=== PATIENT | female | born 1985 | race Caucasian/White ===

== ENCOUNTER 2021-11-11 07:48 | Inpatient (IN) | payer OTHER, SELFPAY ==
--- NOTE | ~2021-11-11 | CT_ITS ---
EXAMINATION: CT ABDOMEN AND PELVIS WITH CONTRAST CLINICAL INFORMATION: Nausea, vomiting, diarrhea and abdominal pain COMPARISON: None TECHNIQUE: Multidetector volumetric images were obtained from the superior aspect of the liver through the pubic symphysis following administration 85 mL of Omnipaque 350 intravenous contrast. Sagittal and coronal reformatted images were obtained on the technologist's workstation. Oral contrast: No This CT examination was performed using dose optimization techniques as appropriate, variously including the following: *Automated exposure control *Adjustment of mA and/or kV according to patient size (this includes techniques or standardized protocols for targeted exams where dose is matched to indication/reason for exam; i.e. extremities or head) *Use of iterative reconstruction technique DLP: 80 mGy-cm FINDINGS: LUNG BASES: The visualized lung bases are unremarkable. LIVER, GALLBLADDER, AND BILIARY TREE: The liver is normal in size, shape, and attenuation. No focal hepatic lesion or biliary ductal dilatation is present. The gallbladder is unremarkable with no evidence of radiopaque gallstones, gallbladder wall thickening, or obvious pericholecystic inflammatory changes. PANCREAS: Unremarkable. SPLEEN: Unremarkable. ADRENAL GLANDS: Unremarkable. KIDNEYS AND URETERS: The kidneys are normal in size, shape, and attenuation. No hydronephrosis, hydroureter, or calculi seen. No perinephric stranding. BLADDER: Unremarkable. GASTROINTESTINAL TRACT: The right colon is filled with fluid. There are inflammatory changes present in the right lower quadrant. The distal ileum appears thickened, which is probably a secondary finding. There are some small locules of extraluminal air seen in the right lower quadrant (see wood images) The appendix can be seen to be air-filled with a thickened wall extending down towards the rectum where there is an inflammatory process (3:67) in the distal end is distended, inflamed and filled with fluid. An appendicolith is not seen. Given the inflammatory process, perforated appendicitis is suspected. Some fluid is present in the presacral space. There is fluid collections seen in the left pelvis measuring 4.6 x 3.8 cm is most likely a left ovarian cyst rather than an abscess related to the appendix. Some fluid is present around the uterus probably related to the above-mentioned inflammatory process. Some mildly prominent right pelvic sidewall lymph nodes present (3:69) ABDOMINAL WALL: No significant hernia is appreciated. LYMPH NODES: No gross retroperitoneal lymphadenopathy. Mildly prominent right iliac lymph nodes. VASCULAR: Unremarkable. PELVIC VISCERA: An anteverted uterus is present. Probable left ovarian cyst as described above. OSSEOUS STRUCTURES: Unremarkable. CT/CT abdomen pelvis w con IMPRESSION: Marked inflammatory process in the right lower quadrant with secondary changes and some small bowel with dilated appendix (although air-filled proximally) with extraluminal gas. Suspect ruptured appendicitis. A drainable abscess collection is not seen. Fleischner guidelines were followed. This critical result was discussed with Dr. Dimitris Husain at 12 noon on the day the exam and it was ascertained that the content and urgency of the report was understood at the time of direct communication.
--- NOTE | ~2021-11-11 | CT_ITS ---
EXAMINATION: CT abdomen pelvis w con CLINICAL INFORMATION: Reason for Exam f/u perforated appendicitis COMPARISON: Prior CT from November 11, 2021 TECHNIQUE: Multidetector volumetric imaging was performed from the superior aspect of the liver through the pubic symphysis 85 cc of Omnipaque 350 injected Sagittal and coronal reformatted images were obtained on the technologist's workstation. This CT examination was performed using dose optimization techniques as appropriate, variously including the following: *Automated exposure control *Adjustment of mA and/or kV according to patient size (this includes techniques or standardized protocols for targeted exams where dose is matched to indication/reason for exam; i.e. extremities or head) *Use of iterative reconstruction technique DLP: 726 mGy-cm FINDINGS: LOWER THORAX: Mild atelectasis at right lung base. HEPATOBILIARY: No focal hepatic lesions. No biliary ductal dilatation. GALLBLADDER: Gallbladder is distended. SPLEEN: Spleen is normal in size. PANCREAS: No focal mass or ductal dilatation. STOMACH AND GASTROINTESTINAL TRACT: Stomach is grossly unremarkable. Dilated fluid-filled bowel loops throughout the abdomen suggesting an ileus. Appendix could not be directly visualized might have been ruptured, there is a phlegmon in the pelvis, mesenteric fat stranding, inflammation and fluid likely sequela of the ruptured appendix. There is no localized contained walled off abscess at this time yet. There is no free air. Few mildly prominent mesenteric lymph nodes probably reactive. ADRENALS: No adrenal nodules. KIDNEYS/URETERS: No hydronephrosis, stones or solid mass lesions. URINARY BLADDER: Partially decompressed. PELVIC VISCERA: Uterus is unremarkable. Rectum and perirectal fat are clear. There is a probably left ovarian cyst 4 cm unchanged. PERITONEUM: Small amount of free fluid along the gutters and in the pelvis ascites. No significant free air. LYMPH NODES: No lymphadenopathy. VASCULAR:Abdominal aorta normal in size, no aneurysm found. BONES, ABDOMINAL WALL AND SOFT TISSUES: Age-appropriate changes of the spine and skeletal system, no destructive osteolytic or osteosclerotic bone lesion found CT/CT abdomen pelvis w con IMPRESSION: *Further progression, more inflammation and fat stranding in the mid abdomen and pelvis likely phlegmon possible peritonitis from recently ruptured appendix. At this time however there is no loculated walled off fluid collection abscess. Given the degree of inflammation would recommend Continued imaging surveillance, May consider follow-up CT in one week. *Dilated fluid-filled small bowel loops throughout the abdomen suggesting an ileus. *There is 4 cm cystic structure in the left side of the pelvis probably left ovarian cyst unchanged. *Few mildly prominent mesenteric lymph nodes likely reactive. *Mild atelectasis at lung bases. *Mild ascites.
[2021-11-11 07:52] VITALS: BP 125/81; PULSE 132; RESP 20; TEMP 36.1; O2SAT 97; BMI 31.0
--- NOTE | 2021-11-11 08:07 | ED.NAVMDI ---
HPI - Nausea/Vomiting/Diarrhea General Chief complaint: Nausea/Vomiting/Diarrhea Stated complaint: vomiting Time Seen by Provider: 11/11/21 08:06 Source: patient Mode of arrival: ambulatory Limitations: no limitations History of Present Illness HPI Narrative: 36-year-old female presents emergency room complaining of nausea vomiting diarrhea. States % had the same thing last week as well as her they both recovered but she still feels like she is still feeling worse he had copious diarrhea strange denies any bloody or black stool and she states she has vomited twice today but no diarrhea since yesterday. She denies any falls or injuries she denies any surgeries to her abdomen. States she never had this problem in the past. She states she does not smoke drink and does not take any medications. MD elicited complaint: nausea, vomiting, diarrhea and abdominal pain Related Data Previous Rx's Medication Instructions Recorded norethindrone (contraceptive) 0.35 0.35 mg PO DAILY #28 tab 07/21/ mg tablet Allergies Allergy/AdvReac Type Severity Reaction Status Date / Time adhesive AdvReac Itching Verified 11/11/21 07:57 Review of Systems Review of Systems: Review of systems: General: Patient denies any fever chills recent illness or falls Musculoskeletal: Denies back pain or body aches or other injuries HEENT: denies headache, runny nose, ear pain Respiratory: denies shortness of breath, cough Cardiovascular: no chest pain or palpitations : denies dysuria, frequency Abdomen: diarrhea nausea vomiting generalized abdominal pain Extremities: no swelling, no pain Skin: no diaphoresis Yes all other systems are reviewed and are negative PMFSH Past Medical History Medical History (Updated 11/11/21 @ 12:37 by Dimitris Husain DO) Eczema Surgical History (Updated 11/11/21 @ 13:36 by Hiwot Haider PA-C) History of section Social History Social History Advance Directives: No Advance Directives Information Provided: No Patient : No Physical Exam Vital Signs: Vital Signs: Last Vital Signs Temp 99.1 F 11/11/21 11:53 Pulse 80 11/11/21 11:53 Resp 18 11/11/21 11:53 BP 109/42 L 11/11/21 11:53 Pulse Ox 99 11/11/21 11:53 BMI result Body Mass Index 31.0 General: Well-appearing well-nourished in no signs of distress HEENT: Normocephalic atraumatic Neck: No signs of JVD, no masses no tenderness or lymphadenopathy Cardiovascular: Regular rate and rhythm Respiratory: Clear to auscultation bilaterally Abdomen: Soft tender all over no masses Extremities: Normal pedal pulses no signs of edema Skin: Dry warm no rashes Back: No tenderness full ROM MDM - Nausea/Vomiting/Diarrhea MDM Narrative Medical decision making narrative: Patient denies any travel any recent drinking her stream she has no recent antibiotic use mainly is complaining of vomiting I will give the patient fluids she is tachycardic so I will order 2 L (Zofran morphine since patient is tender on exam will give patient for CT scan. 1200 patient found to have perforated appendicitis I started the patient on Zosyn explained there is also the patient my consulted with our surgeon. 1235 Dr. Haider will come and see the patient. 1345 Dr. Haider saw the patient and will admit. Lab Data Result diagrams: 11/11/21 08:21 11/11/21 08:21 Labs: Lab Results 11/11/21 11/11/21 11/11/21 Range/Units 08:21 08:21 08:21 WBC 31.2 H* (4.8-10.8) X10*3/uL RBC 4.27 (4.20-5.50) X10*6/uL Hgb 12.8 (12.0-16.0) g/dl Hct 38.7 (37.0-47.0) % MCV 90.6 (80.0-98.0) fL MCH 30.0 (27.0-33.0) pg MCHC 33.1 (31.0-35.0) g/dl RDW 12.6 (11.0-16.0) % Plt Count 263 (160-400) X10*3/uL MPV 9.5 (9.4-12.3) fL Immature Gran % (Auto) 1.0 H (0.0-0.4) % Neut % (Auto) 90.5 H (45-73) % Lymph % (Auto) 3.3 L (20-40) % Mineral % (Auto) 4.9 (2-11) % Eos % (Auto) 0.0 (0-4) % Baso % (Auto) 0.3 (0-2) % Lymph # (Auto) 1.0 L (1.2-4.9) X10*3/uL Mineral # (Auto) 1.5 H (0.1-1.2) X10*3/uL Eos # (Auto) 0.0 (0.0-0.4) X10*3/uL Baso # (Auto) 0.1 (0.0-0.2) X10*3/uL Abs Immat Gran (auto) 0.31 H (0.00-0.03) X10*3/uL Absolute Neuts (auto) 28.2 H (2.0-8.3) x10*3/uL Absolute Nucleated RBC 0.000 (0.0-0.012) X10*3/uL Nucleated RBC % (auto) 0.0 (0.0-0.2) /100WBC Smear Tech's Comments VERIFIED Sodium 132 L (135-145) mmol/L Potassium 3.7 (3.3-5.1) mmol/L Chloride 100 (96-108) mmol/L Carbon Dioxide 18 L (22-29) mmol/L Anion Gap 18 (12-20) BUN 10 (9-16) mg/dL Creatinine 0.74 (0.5-1.4) mg/dL Estim Creat Clear Calc 123.3 Estimated GFR > 60 Random Glucose 143 H (60-115) mg/dL Calcium 9.1 (8.4-10.2) mg/dL Total Bilirubin 1.8 H (0.0-1.0) mg/dL Direct Bilirubin 0.7 H (0.0-0.5) mg/dL AST 20 (5-31) U/L ALT 9 (0-31) U/L Alkaline Phosphatase 66 (39-117) U/L Total Protein 7.6 (6.5-8.0) g/dL Albumin 3.9 (3.5-5.0) g/dL Lipase 5 L (8-78) U/L Urine Color Urine Appearance Urine pH (5.0-8.0) Ur Specific [place] (1.005-1.025) Urine Protein (NEG-TRACE) MG/DL Urine Glucose (UA) (NEG) MG/DL Urine Ketones (NEG) MG/DL Urine Blood (NEG) Urine Nitrite (NEG) Ur Leukocyte Esterase (NEG) Urine RBC (0) /HPF Urine WBC (0-4) /HPF Ur Squamous Epith Cells /LPF Amorphous Sediment /LPF Urine Bacteria /LPF Granular Casts /LPF Urine Test (NEGATIVE) COVID-19 (ANDRADE) Negative (Negative) COVID-19 Clin Com See Note 11/11/21 11/11/21 Range/Units 09:48 09:49 WBC (4.8-10.8) X10*3/uL RBC (4.20-5.50) X10*6/uL Hgb (12.0-16.0) g/dl Hct (37.0-47.0) % MCV (80.0-98.0) fL MCH (27.0-33.0) pg MCHC (31.0-35.0) g/dl RDW (11.0-16.0) % Plt Count (160-400) X10*3/uL MPV (9.4-12.3) fL Immature Gran % (Auto) (0.0-0.4) % Neut % (Auto) (45-73) % Lymph % (Auto) (20-40) % Mineral % (Auto) (2-11) % Eos % (Auto) (0-4) % Baso % (Auto) (0-2) % Lymph # (Auto) (1.2-4.9) X10*3/uL Mineral # (Auto) (0.1-1.2) X10*3/uL Eos # (Auto) (0.0-0.4) X10*3/uL Baso # (Auto) (0.0-0.2) X10*3/uL Abs Immat Gran (auto) (0.00-0.03) X10*3/uL Absolute Neuts (auto) (2.0-8.3) x10*3/uL Absolute Nucleated RBC (0.0-0.012) X10*3/uL Nucleated RBC % (auto) (0.0-0.2) /100WBC Smear Tech's Comments Sodium (135-145) mmol/L Potassium (3.3-5.1) mmol/L Chloride (96-108) mmol/L Carbon Dioxide (22-29) mmol/L Anion Gap (12-20) BUN (9-16) mg/dL Creatinine (0.5-1.4) mg/dL Estim Creat Clear Calc Estimated GFR Random Glucose (60-115) mg/dL Calcium (8.4-10.2) mg/dL Total Bilirubin (0.0-1.0) mg/dL Direct Bilirubin (0.0-0.5) mg/dL AST (5-31) U/L ALT (0-31) U/L Alkaline Phosphatase (39-117) U/L Total Protein (6.5-8.0) g/dL Albumin (3.5-5.0) g/dL Lipase (8-78) U/L Urine Color DK YELLOW Urine Appearance CLOUDY Urine pH 6.0 (5.0-8.0) Ur Specific [place] >= 1.030 H (1.005-1.025) Urine Protein 3+ H (NEG-TRACE) MG/DL Urine Glucose (UA) 100 H (NEG) MG/DL Urine Ketones 40 (NEG) MG/DL Urine Blood 2+ H (NEG) Urine Nitrite POS H (NEG) Ur Leukocyte Esterase NEG (NEG) Urine RBC 0-2 (0) /HPF Urine WBC 0-2 (0-4) /HPF Ur Squamous Epith Cells 1+ /LPF Amorphous Sediment 4+ /LPF Urine Bacteria 3+ /LPF Granular Casts 5-9 /LPF Urine Test NEGATIVE (NEGATIVE) COVID-19 (ANDRADE) (Negative) COVID-19 Clin Com Critical Care Time Critical Care Time Critical Care Time: Yes Total Critical Care Time: 46 Attestation: Patient with perforated appendicitis IV antibiotics initiated immediately consultation with surgery about admission and surgery patient reassured patient's pain was also told multiple times. Discharge Plan Discharge Clinical Impression: Perforated appendicitis Prescriptions: No Action norethindrone (contraceptive) 0.35 mg tablet 0.35 mg PO DAILY Qty: 28 2RF
[2021-11-11 08:29] LABS: Basophils Absolute Auto 0.1 X10*3/uL (0.0-0.2); Basophils Percent Auto 0.3 % (0-2); Hematocrit 38.7 % (37.0-47.0); Hemoglobin 12.8 g/dl (12.0-16.0); Imm Gran Abs Auto 0.31 X10*3/uL (0.00-0.03); Lymphocytes Percent Auto 3.3 % (20-40); MANUAL DIFF FLAG SCAN; Mean Corpuscular HGB Conc 33.1 g/dl (31.0-35.0); Mean Corpuscular Volume 90.6 fL (80.0-98.0); Mean Platelet Volume 9.5 fL (9.4-12.3); Monocytes Absolute Auto 1.5 X10*3/uL (0.1-1.2); Monocytes Percent Auto 4.9 % (2-11); Neutrophils Absolute Auto 28.2 x10*3/uL (2.0-8.3); Neutrophils Percent Auto 90.5 % (45-73); Platelet Count 263 X10*3/uL (160-400); Red Blood Count 4.27 X10*6/uL (4.20-5.50); Red Cell Distribution Width 12.6 % (11.0-16.0); SCAN SMEAR FLAG 1
[2021-11-11 08:47] LABS: White Blood Count 31.2 X10*3/uL (4.8-10.8)
[2021-11-11 08:49] LABS: COVID-19 Test Negative (Negative); IDNOW Serial# 16C4AD1C
[2021-11-11] MEDS: 0.9 % Sodium Chloride 1,000 ML 999 ML IV ×2 (08:49→10:01)
[2021-11-11 08:52] LABS: SLIDE REVIEW VERIFIED
[2021-11-11] MEDS: Morphine Sulfate 4 MG/ML CARTRIDGE IVPUSH ×4 (08:58→20:34)
[2021-11-11] MEDS: Famotidine/PF 20 MG/2 ML VIAL IVPUSH (08:58)
[2021-11-11] MEDS: Ketorolac Tromethamine 15 MG/ML VIAL IVPUSH (08:59)
[2021-11-11] MEDS: ondansetron HCL 4 MG/2 ML VIAL IVPUSH (08:59)
[2021-11-11 09:25] LABS: Alanine Aminotransferase 9 U/L (0-31); Albumin Level 3.9 g/dL (3.5-5.0); Alkaline Phosphatase 66 U/L (39-117); Anion Gap 18 (12-20); Aspartate Amino Transferase 20 U/L (5-31); Bilirubin Direct 0.7 mg/dL (0.0-0.5); Bilirubin Total 1.8 mg/dL (0.0-1.0); Blood Urea Nitrogen 10 mg/dL (9-16); Calcium 9.1 mg/dL (8.4-10.2); Carbon Dioxide 18 mmol/L (22-29); Chloride 100 mmol/L (96-108); Creatinine Clr Calc Pharmacy 123.3; Estimated Glomerular Filt Rate > 60; Glucose Random 143 mg/dL (60-115); Lipase 5 U/L (8-78); Potassium 3.7 mmol/L (3.3-5.1); Sodium 132 mmol/L (135-145); Total Protein 7.6 g/dL (6.5-8.0)
[2021-11-11 09:44] VITALS: BP 116/63; PULSE 80; RESP 16; O2SAT 97
[2021-11-11 09:58] LABS: UPreg QC Valid YES; Urine Pregnancy NEGATIVE (NEGATIVE)
[2021-11-11 10:03] LABS: Appearance Urine CLOUDY; Color Urine DK YELLOW; Glucose Urine UA 100 MG/DL (NEG); Leukocyte Esterase Urine NEG (NEG); Nitrite Urine POS (NEG); Specific Gravity - Urine >= 1.030 (1.005-1.025); UACC Culture Trigger YES; Urine Blood 2+ (NEG); Urine Ketones 40 MG/DL (NEG); Urine Protein 3+ MG/DL (NEG-TRACE)
[2021-11-11] MEDS: iohexoL 350 MG/ML 100 ML INFUS..BTL IV (10:17)
[2021-11-11 10:18] LABS: Amorphous Sediment Urine 4+ /LPF; Squamous Epithelial Cell Urine 1+ /LPF
[2021-11-11 10:19] LABS: Bacteria Urine 3+ /LPF
[2021-11-11 10:20] LABS: RBC Urine 0-2 /HPF (0); WBC Urine 0-2 /HPF (0-4)
[2021-11-11 11:53] VITALS: BP 109/42; PULSE 80; RESP 18; TEMP 37.3; O2SAT 99
[2021-11-11] MEDS: Magnesium Hydrox/Alum Hydrox 30 ML ORAL.SUSP PO (12:03)
[2021-11-11] MEDS: Piperacillin Sodium/Tazobactam 4.5 GM in 0.9 % Sodium Chloride 100 ML IV (12:19)
--- NOTE | 2021-11-11 13:07 | P.HPGS_ITS ---
History of Present Illness History of Present Illness Date of Service: 11/11/21 <Hiwot Haider PA-C - Last Filed: 11/11/21 13:54> 11/11/21 <Jo Haider MD - Last Filed: 11/11/21 17:32> Chief complaint: Perforated Appendicitis <Hiwot Haider PA-C - Last Filed: 11/11/21 13:54> Narrative: Natali Hernandez is a healthy 36 year old female who presented to the ED with c/o abdominal pain. She reports she was in her normal state of health until the pain started Monday and was initially periumbilical but migrated to the RLQ where it persisted. The pain is associated with subjective fevers, nausea/vomiting and diarrhea. Her and son had similar symptoms which is why she thought she had a stomach bug. However the pain worsened last night and became so severe she was unable to sleep. This prompted her to seek care in the ED. A CBC was obtained in the ED which showed a leukocytosis of 31. A CT scan was therefore obtained which showed inflammatory changes present in the right lower quadrant with a thickened appendix extending down towards the rectum where there is an inflammatory process. There are some small locules of extraluminal air seen in the right lower quadrant. Surgery consult was therefore requested. <Hiwot Haider PA-C - Last Filed: 11/11/21 13:54> Review of Systems Constitutional: Constitutional: Reports as per HPI, Denies chills, Denies night sweats and Denies weight loss <Hiwot Haider PA-C - Last Filed: 11/11/21 13:54> ENT: Denies dizziness <Hiwot Haider PA-C - Last Filed: 11/11/21 13:54> Cardiovascular: Cardiovascular: Denies palpitations and Denies dyspnea <ALEXANDRIA Keita Last Filed: 11/11/21 13:54> Respiratory: Respiratory: Denies cough and Denies dyspnea <ALEXANDRIA Keita Last Filed: 11/11/21 13:54> Gastrointestinal: Gastrointestinal: Reports as per HPI, Denies melena, Denies hematochezia, Denies coffee ground emesis and Denies hematemesis <Hiwot Haider PA-C - Last Filed: 11/11/21 13:54> Genitourinary: Genitourinary: Denies hematuria and Reports dysuria <Hiwot Haider PA-C - Last Filed: 11/11/21 13:54> Musculoskeletal: Musculoskeletal: Denies numbness <TREY Keita - Last Filed: 11/11/21 13:54> Integumentary/Breasts: Skin/Breast: Denies rash and Denies jaundice <Hiwot Haider PA-C - Last Filed: 11/11/21 13:54> Neurologic: Denies dizziness, Denies focal weakness and Denies numbness <Hiwot Haider PA-C - Last Filed: 11/11/21 13:54> Endocrine: Endocrine: Denies palpitations <Hiwot Haider PA-C - Last Filed: 11/11/21 13:54> PMFSH Past Medical History Medical History: Medical History (Updated 11/11/21 @ 12:37 by Dimitris Husain DO) Eczema <Hiwot Haider PA-C - Last Filed: 11/11/21 13:54> Surgical History Surgical History: Surgical History (Updated 11/11/21 @ 13:36 by Hiwot Haider PA-C) History of section <ALEXANDRIA Keita Last Filed: 11/11/21 13:54> Social History Social History: Social History Advance Directives: No Advance Directives Information Provided: No Patient : No <Hiwot Haider PA-C - Last Filed: 11/11/21 13:54> Meds Allergies/Adverse reactions: Allergies Allergy/AdvReac Type Severity Reaction Status Date / Time adhesive AdvReac Itching Verified 11/11/21 07:57 <Hiwot Haider PA-C Last Filed: 11/11/21 13:54> Home medications: Home Medications Medication Instructions Recorded Confirmed Last Taken Type triamcinolone acetonide 0.1 % 1 appl TOPICAL DAILY PRN 11/11/21 11/11/21 Unknown History topical cream <Hiwot Haider PA-C - Last Filed: 11/11/21 13:54> Physical Exam Vital Signs: Vital Signs: Last Vital Signs Temp 99.1 F 11/11/21 11:53 Pulse 80 11/11/21 11:53 Resp 18 11/11/21 11:53 BP 109/42 L 11/11/21 11:53 Pulse Ox 99 11/11/21 11:53 BMI result Body Mass Index 31.0 <[facility] Last Filed: 11/11/21 13:54> Const: General: no acute distress, well developed, alert and anxious <[facility] Last Filed: 11/11/21 13:54> Orientation/consciousness: patient oriented x3 <[facility] Last Filed: 11/11/21 13:54> Eyes: Sclerae: sclerae normal <[facility] Last Filed: 11/11/21 13:54> Resp: Effort & Inspection: normal respiratory effort <[facility] Last Filed: 11/11/21 13:54> Cardio: Rate: regular rate <[facility] Last Filed: 11/11/21 13:54> GI: Inspection: No distended and Yes scar (pfannensteil) <TREY Keita Last Filed: 11/11/21 13:54> Palpation (GI): Soft to palpation, Tenderness to palpation present (GI) (mild tenderness diffusely, marked RLQ tenderness) at McBurney's point; Negative for Rovsing's sign negative, no guarding and not rigid <[facility] Last Filed: 11/11/21 13:54> Percussion: Yes normal to percussion <TREY Keita [employer] Last Filed: 11/11/21 13:54> Skin: General skin exam: no rashes or lesions noted <[facility] Last Filed: 11/11/21 13:54> Neuro: General: patient oriented x3 and moves all extremities <[facility] Last Filed: 11/11/21 13:54> Extrem: General: Yes no clubbing, cyanosis or edema <Hiwot Haider PA-C - Last Filed: 11/11/21 13:54> Results Results Labs: Short CBC 11/11/21 Range/Units 08:21 WBC 31.2 H* (4.8-10.8) X10*3/uL Hgb 12.8 (12.0-16.0) g/dl Hct 38.7 (37.0-47.0) % Plt Count 263 (160-400) X10*3/uL BMP 11/11/21 08:21 Sodium 132 L Potassium 3.7 Chloride 100 Carbon Dioxide 18 L BUN 10 Creatinine 0.74 Calcium 9.1 Liver Function 11/11/21 Range/Units 08:21 Total Bilirubin 1.8 H (0.0-1.0) mg/dL Direct Bilirubin 0.7 H (0.0-0.5) mg/dL AST 20 (5-31) U/L ALT 9 (0-31) U/L Alkaline Phosphatase 66 (39-117) U/L Albumin 3.9 (3.5-5.0) g/dL Urine 11/11/21 11/11/21 Range/Units 09:48 09:49 Urine Color DK YELLOW Urine Appearance CLOUDY Urine pH 6.0 (5.0-8.0) Ur Specific [place] >= 1.030 H (1.005-1.025) Urine Protein 3+ H (NEG-TRACE) MG/DL Urine Glucose (UA) 100 H (NEG) MG/DL Urine Test NEGATIVE (NEGATIVE) <Hiwot Haider PA-C - Last Filed: 11/11/21 13:54> Abdomen CT scan report/results: report reviewed and image reviewed <Hiwot Haider PA-C - Last Filed: 11/11/21 13:54> Additional studies: CT SCAN abd/pelvis: The right colon is filled with fluid. There are inflammatory changes present in the right lower quadrant. The distal ileum appears thickened, which is probably a secondary finding. There are some small locules of extraluminal air seen in the right lower quadrant (see wood images) The appendix can be seen to be air-filled with a thickened wall extending down towards the rectum where there is an inflammatory process (3:67) in the distal end is distended, inflamed and filled with fluid. An appendicolith is not seen. Given the inflammatory process, perforated appendicitis is suspected. Some fluid is present in the presacral space. There is fluid collections seen in the left pelvis measuring 4.6 x 3.8 cm is most likely a left ovarian cyst rather than an abscess related to the appendix. Some fluid is present around the uterus probably related to the above-mentioned inflammatory process. Some mildly prominent right pelvic sidewall lymph nodes present (3:69) <Hiwot Haider PA-C - Last Filed: 11/11/21 13:54> Assessment and Plan (1) Perforated appendicitis: Status: Acute <Hiwot Haider PA-C - Last Filed: 11/11/21 13:54> Plan 36 year old healthy female who developed acute onset of periumbilical abd pain that migrated to RLQ associated with vomiting and diarrhea, with marked RLQ tenderness, leukocytosis of CT scan demonstrating thickened appendix with significant surrounding inflammatory changes and small foci of extraluminal air in the RLQ. Overall clinical picture consistent with acute appendicitis, perforated. She does have marked RLQ tenderness however without any peritoneal signs. Her vitals are stable and she is currently non toxic appearing but very anxious. Given the significant surrounding inflammatory changes present on CT scan, it was suggested to continue with nonoperative treatment with IV antibiotics and close monitoring with serial abd exams. It was discussed that if we did proceed with appendectomy, there is a probability she would require an ileocolectomy given the present changes seen. However it was also discussed that if she does not improve with supportive measures, she may requiring surgery during this admission. She understands. There is no current drainable abscess noted as well. She was started on IV zosyn, kept NPO, IVF, PRN analgesics and antiemetics. Will repeat labs in am. Further plan dependent on clinical course. Possible repeat CT scan in a couple days or sooner to evaluate for developing abscess. Lactic acid ordered and is pending. Discussed with patient and spouse. All questions answered. Case discussed with Dr. Haider. <Hiwot Haider PA-C - Last Filed: 11/11/21 13:54> 36 year old healthy female who developed acute onset of periumbilical abd pain that migrated to RLQ associated with vomiting and diarrhea, with marked RLQ tenderness, leukocytosis of CT scan demonstrating thickened appendix with significant surrounding inflammatory changes and small foci of extraluminal air in the RLQ. Overall clinical picture consistent with acute appendicitis, perforated. She does have marked RLQ tenderness however without any peritoneal signs. Her vitals are stable and she is currently non toxic appearing but very anxious. Given the significant surrounding inflammatory changes present on CT scan, it was suggested to continue with nonoperative treatment with IV antibiotics and close monitoring with serial abd exams. It was discussed that if we did proceed with appendectomy, there is a probability she would require an ileocolectomy given the present changes seen. However it was also discussed that if she does not improve with supportive measures, she may requiring surgery during this admission. She understands. There is no current drainable abscess noted as well. She was started on IV zosyn, kept NPO, IVF, PRN analgesics and antiemetics. Will repeat labs in am. Further plan dependent on clinical course. Possible repeat CT scan in a couple days or sooner to evaluate for developing abscess. Lactic acid ordered and is pending. Discussed with patient and spouse. All questions answered. Case discussed with Dr. Haider. agree with the above. pt seen and examined and xrays reviewed with rad team. agree most likely with ruptured appendicits but lots of inflammatory changes around the cecum and appnedix and higher chance of needing an ileocecal procedure. pt stable and localized pain so will trial npo, ivf, iv zosyn and fu serial abdo exams and labs in am. pt uderstands and agrees risks and benefits of options and will stay with plan for conservative care for now. <Jo Haider MD - Last Filed: 11/11/21 17:32> Quality Stroke Does the patient have a stroke diagnosis?: No <Hiwot Haider PA-C - Last Filed: 11/11/21 13:54> VTE Prior VTE?: No <Hiwot Haider PA-C - Last Filed: 11/11/21 13:54> VTE Risk Level:: Surgical - moderate <ALEXANDRIA Keita Last Filed: 11/11/21 13:54> VTE Device Contraindication: N/A - Device Ordered <ALEXANDRIA Keita Last Filed: 11/11/21 13:54> VTE Drug Contraindication: Treatment Not Indicated <Hiwot Haider PA-C - Last Filed: 11/11/21 13:54> Procedures Date of Service Date of Service: 11/11/21 <Hiwot Haider PA-C - Last Filed: 11/11/21 13:54>
[2021-11-11 13:55] VITALS: BP 110/42; PULSE 100; RESP 12; O2SAT 99
--- NOTE | 2021-11-11 14:26 | PHA.MEDREC ---
Pharmacy Consult ? Medication Reconciliation Pharmacy has completed the medication reconciliation. Pt only uses eczema cream as needed. Luz Marina Valle, HollyD
[2021-11-11] MEDS: Lactated Ringers 1,000 ML 125 ML IVCONT (16:39)
[2021-11-11] MEDS: Ketorolac Tromethamine 30 MG/ML VIAL IVPUSH (17:47)
[2021-11-11] MEDS: Piperacillin Sodium/Tazobactam 3.375 GM in 0.9 % Sodium Chloride 50 ML IV ×2 (17:48→23:29)
--- NOTE | 2021-11-11 18:20 | MHC.CM.PN ---
No HCP-declines. Pfizerx2, Moderna Boosterx1. Lives with . 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 No DME/services. PCP [facility]. D/C plan: Home without services. Family to transport.
[2021-11-11 20:15] VITALS: BP 109/55; PULSE 90; RESP 18; TEMP 37.1; O2SAT 96
[2021-11-11] MEDS: Lactated Ringers 1,000 ML 150 ML IVCONT (20:34)
[2021-11-11] MEDS: 0.9 % Sodium Chloride Flush 3 ML SYRINGE IVFLUSH (20:35)
[2021-11-11 20:40] VITALS: BMI 21.4
[2021-11-12] VITALS (8 sets, daily range): BP systolic 100–138; BP diastolic 53–65; PULSE 72–105; RESP 17–18; TEMP 36.2–37.7; O2SAT 95–98
[2021-11-12] MEDS: Lactated Ringers 1,000 ML 150 ML IVCONT ×4 (02:11→23:26)
[2021-11-12] MEDS: Morphine Sulfate 4 MG/ML CARTRIDGE IVPUSH ×2 (04:30→15:51)
[2021-11-12 06:07] LABS: Hematocrit 32.1 % (37.0-47.0); Hemoglobin 10.5 g/dl (12.0-16.0); Mean Corpuscular HGB Conc 32.7 g/dl (31.0-35.0); Mean Corpuscular Volume 91.7 fL (80.0-98.0); Mean Platelet Volume 10.4 fL (9.4-12.3); Platelet Count 217 X10*3/uL (160-400); Red Cell Distribution Width 12.9 % (11.0-16.0); White Blood Count 23.3 X10*3/uL (4.8-10.8)
[2021-11-12] MEDS: Piperacillin Sodium/Tazobactam 3.375 GM in 0.9 % Sodium Chloride 50 ML IV ×3 (06:09→18:14)
[2021-11-12 06:39] LABS: Anion Gap 14 (12-20); Blood Urea Nitrogen 17 mg/dL (9-16); Calcium 8.1 mg/dL (8.4-10.2); Carbon Dioxide 20 mmol/L (22-29); Chloride 104 mmol/L (96-108); Estimated Glomerular Filt Rate > 60; Glucose Random 72 mg/dL (60-115); Potassium 3.4 mmol/L (3.3-5.1); Sodium 135 mmol/L (135-145)
[2021-11-12 06:44] LABS: Band Neutrophils Percent 11 % (3-5); Basophils Abs Manual 0.2 X10*3/uL (0.0-0.2); Basophils Percent Manual 1 % (0-2); Eosinophils Absolute Manual 0.5 X10*3/uL (0.0-0.4); Eosinophils Percent Manual 2 % (0-4); Lymphocytes Absolute Manual 0.7 X10*3/uL (1.2-4.9); Lymphocytes Percent Manual 3 % (20-40); Monocytes Absolute Manual 0.9 X10*3/uL (0.1-1.2); Monocytes Percent Manual 4 % (2-11); Neutrophils Percent Manual 79 % (45-73)
[2021-11-12 06:45] LABS: Platelet Estimate NORMAL (NORMAL); Platelet Morphology Comment NORMAL; RBC Morphology NORMAL; Toxic Granulation PRESENT; Toxic Vacuolation PRESENT
--- NOTE | 2021-11-12 07:28 | P.HPHOSP_ITS ---
History of Present Illness Date of Service: 11/12/21 Attending physician on admission: Amado Reinoso [facility] Medical History (Updated 11/11/21 @ 12:37 by Dimitris Husain DO) Eczema Surgical History (Updated 11/11/21 @ 13:36 by Hiwot Haider PA-C) History of section Social History Household Members: Spouse and Family Housing: House Do you presently have visiting nurse or other home services: No Patient Tobacco Use Status: Never used Tobacco Use of substances other than those prescribed or required for medical reasons: No Currently Displaying Signs/Symptoms of Drug Intoxication Withdrawal: No Have you been hit, kicked, punched, or otherwise hurt by someone within the past year? If so, by whom?: No Do you feel safe in your current relationship?: No Is there a partner from a previous relationship who is making you feel unsafe now?: No Are you made to feel afraid or neglected: No Advance Directives: No Advance Directives Information Provided: No Advance Directives on File: No Do you have thoughts of harming others: None Do you have a plan to hurt others: No Plan Recently lost weight without trying: No How much weight loss: Not applicable Eating poorly because of decreased appetite: No Nutrition screen score: 0 Nutrition Risks: No Nutritional Risk Patient : No : No Poor oral hygiene: No service: No Current occupational status: employed Meds Allergies Allergy/AdvReac Type Severity Reaction Status Date / Time adhesive AdvReac Itching Verified 11/11/21 07:57 Active Medications: Current Medications Lactated Ringer's (Lr) 1,000 mls @ 150 mls/hr IVCONT .Q6H40M [facility] Last Admin: 11/12/21 02:11 Dose: 150 mls/hr Documented by: Piperacillin Sod/Tazobactam (Sod 3.375 gm/ Sodium Chloride) 50 mls @ 100 mls/hr IV Q6H [facility] Last Infusion: 11/12/21 06:48 Dose: Infused Documented by: Acetaminophen (Ofirmev) 1,000 mg in 100 mls @ 400 mls/hr IV Q6H [facility] Last Infusion: 11/12/21 02:11 Dose: Infused Documented by: Ketorolac Tromethamine (Ketorolac Tromethamine 30 Mg/Ml Vial) 30 mg IVPUSH Q6H PRN PRN Reason: Pain, Moderate (Pain Scale 4-6 Last Admin: 11/11/21 17:47 Dose: 30 mg Documented by: Morphine Sulfate (Morphine Sulfate 4 Mg/Ml Cartridge) 4 mg IVPUSH Q4H PRN; Protocol PRN Reason: Pain, Severe (Pain Scale 7-10) Last Admin: 11/12/21 04:30 Dose: 4 mg Documented by: Ondansetron HCl (Ondansetron Hcl 4 Mg/2 Ml Vial) 4 mg IVPUSH Q8H PRN PRN Reason: Nausea and Vomiting Oxycodone HCl (Oxycodone Hcl Immed Release 5 Mg Tablet) 5 mg PO Q6H PRN PRN Reason: Pain, Moderate (Pain Scale 4-6 Pharmacy Consult (Consult Rx Perform Med Rec) 1 each MISCELLANE ONCE PRN PRN Reason: Consult order Sodium Chloride (0.9 % Sodium Chloride Flush 3 Ml Syringe) 3 ml IVFLUSH [facility] Last Admin: 11/11/21 20:35 Dose: 3 ml Documented by: Home Medications Medication Instructions Recorded Confirmed Last Taken Type triamcinolone acetonide 0.1 % 1 appl TOPICAL DAILY PRN 11/11/21 11/11/21 Unknown History topical cream Physical Exam Vital Signs and Narrative: Vital Signs: Last Vital Signs Temp 98.2 F 11/12/21 04:00 Pulse 79 11/12/21 04:00 Resp 18 11/12/21 04:00 BP 100/53 L 11/12/21 04:00 Pulse Ox 96 11/12/21 04:00 BMI result Body Mass Index 21.4 Results Labs CBC and Chem 7: 11/12/21 05:21 11/12/21 05:21 Labs: Laboratory Results - last 24 hr 11/11/21 11/11/21 11/11/21 08:21 08:21 08:21 MCV 90.6 MCH 30.0 MCHC 33.1 RDW 12.6 Plt Count 263 MPV 9.5 Immature Gran % (Auto) 1.0 H Neut % (Auto) 90.5 H Lymph % (Auto) 3.3 L [place] % (Auto) 4.9 Eos % (Auto) 0.0 Baso % (Auto) 0.3 Lymph # (Auto) 1.0 L [place] # (Auto) 1.5 H Eos # (Auto) 0.0 Baso # (Auto) 0.1 Abs Immat Gran (auto) 0.31 H Absolute Neuts (auto) 28.2 H Absolute Nucleated RBC 0.000 Nucleated RBC % (auto) 0.0 Neutrophils % (Manual) Band Neutrophils % Lymphocytes % (Manual) Monocytes % (Manual) Eosinophils % (Manual) Basophils % (Manual) Abs Neuts (Manual) Lymphocytes # (Manual) Monocytes # (Manual) Eosinophils # (Manual) Basophils # (Manual) Toxic Granulation Toxic Vacuolation Platelet Estimate Plt Morphology Comment RBC Morphology Smear Tech's Comments VERIFIED Anion Gap 18 Estim Creat Clear Calc 123.3 Estimated GFR > 60 Random Glucose 143 H Lactic Acid Calcium 9.1 Total Bilirubin 1.8 H Direct Bilirubin 0.7 H AST 20 ALT 9 Alkaline Phosphatase 66 Total Protein 7.6 Albumin 3.9 Lipase 5 L Urine Color Urine Appearance Urine pH Ur Specific [place] Urine Protein Urine Glucose (UA) Urine Ketones Urine Blood Urine Nitrite Ur Leukocyte Esterase Urine RBC Urine WBC Ur Squamous Epith Cells Amorphous Sediment Urine Bacteria Granular Casts Urine Test COVID-19 (ANDRADE) Negative COVID-19 Clin Com See Note 11/11/21 11/11/21 11/11/21 09:48 09:49 15:56 MCV MCH MCHC RDW Plt Count MPV Immature Gran % (Auto) Neut % (Auto) Lymph % (Auto) [place] % (Auto) Eos % (Auto) Baso % (Auto) Lymph # (Auto) [place] # (Auto) Eos # (Auto) Baso # (Auto) Abs Immat Gran (auto) Absolute Neuts (auto) Absolute Nucleated RBC Nucleated RBC % (auto) Neutrophils % (Manual) Band Neutrophils % Lymphocytes % (Manual) Monocytes % (Manual) Eosinophils % (Manual) Basophils % (Manual) Abs Neuts (Manual) Lymphocytes # (Manual) Monocytes # (Manual) Eosinophils # (Manual) Basophils # (Manual) Toxic Granulation Toxic Vacuolation Platelet Estimate Plt Morphology Comment RBC Morphology Smear Tech's Comments Anion Gap Estim Creat Clear Calc Estimated GFR Random Glucose Lactic Acid Cancelled Calcium Total Bilirubin Direct Bilirubin AST ALT Alkaline Phosphatase Total Protein Albumin Lipase Urine Color DK YELLOW Urine Appearance CLOUDY Urine pH 6.0 Ur Specific [place] >= 1.030 H Urine Protein 3+ H Urine Glucose (UA) 100 H Urine Ketones 40 Urine Blood 2+ H Urine Nitrite POS H Ur Leukocyte Esterase NEG Urine RBC 0-2 Urine WBC 0-2 Ur Squamous Epith Cells 1+ Amorphous Sediment 4+ Urine Bacteria 3+ Granular Casts 5-9 Urine Test NEGATIVE COVID-19 (ANDRADE) COVID-19 [employer] Com 11/12/21 11/12/21 05:21 05:21 MCV 91.7 MCH 30.0 MCHC 32.7 RDW 12.9 Plt Count 217 MPV 10.4 Immature Gran % (Auto) Cancelled Neut % (Auto) Cancelled Lymph % (Auto) Cancelled [place] % (Auto) Cancelled Eos % (Auto) Cancelled Baso % (Auto) Cancelled Lymph # (Auto) Cancelled [place] # (Auto) Cancelled Eos # (Auto) Cancelled Baso # (Auto) Cancelled Abs Immat Gran (auto) Cancelled Absolute Neuts (auto) Cancelled Absolute Nucleated RBC 0.000 Nucleated RBC % (auto) 0.0 Neutrophils % (Manual) 79 H Band Neutrophils % 11 H Lymphocytes % (Manual) 3 L Monocytes % (Manual) 4 Eosinophils % (Manual) 2 Basophils % (Manual) 1 Abs Neuts (Manual) 21.0 H Lymphocytes # (Manual) 0.7 L Monocytes # (Manual) 0.9 Eosinophils # (Manual) 0.5 H Basophils # (Manual) 0.2 Toxic Granulation PRESENT Toxic Vacuolation PRESENT Platelet Estimate NORMAL Plt Morphology Comment NORMAL RBC Morphology NORMAL Smear Tech's Comments Anion Gap 14 Estim Creat Clear Calc 100.0 Estimated GFR > 60 Random Glucose 72 Lactic Acid Calcium 8.1 L D Total Bilirubin Direct Bilirubin AST ALT Alkaline Phosphatase Total Protein Albumin Lipase Urine Color Urine Appearance Urine pH Ur Specific [place] Urine Protein Urine Glucose (UA) Urine Ketones Urine Blood Urine Nitrite Ur Leukocyte Esterase Urine RBC Urine WBC Ur Squamous Epith Cells Amorphous Sediment Urine Bacteria Granular Casts Urine Test COVID-19 (ANDRADE) COVID-19 Clin Com Imaging Radiologist's Impressions: Impressions Abdomen/Pelvis CT 11/11/21 10:18 IMPRESSION: Marked inflammatory process in the right lower quadrant with secondary changes and some small bowel with dilated appendix (although air-filled proximally) with extraluminal gas. Suspect ruptured appendicitis. A drainable abscess collection is not seen. Fleischner guidelines were followed. This critical result was discussed with Dr. Dimitris Husain at 12 noon on the day the exam and it was ascertained that the content and urgency of the report was understood at the time of direct communication. Quality Stroke Does the patient have a stroke diagnosis?: No VTE Prior VTE?: No VTE Risk Level:: Surgical - moderate VTE Device Contraindication: N/A - Device Ordered VTE Drug Contraindication: Treatment Not Indicated
[2021-11-12] MEDS: 0.9 % Sodium Chloride Flush 3 ML SYRINGE IVFLUSH ×3 (07:44→23:26)
--- NOTE | 2021-11-12 08:06 | P.PNGS_ITS ---
Subjective Subjective Date of Service: 11/12/21 <Hiwot Haider PA-C - Last Filed: 11/12/21 08:14> 11/12/21 <Jere Odom MD - Last Filed: 11/12/21 15:00> Interval history: RLQ pain is much better this morning but also now having menstrual cramping. Denies further nausea and wants to eat. <Hiwot Haider PA-C - Last Filed: 11/12/21 08:14> Physical Exam Vital Signs: Vital Signs: Last Vital Signs Temp 98.7 F 11/12/21 07:29 Pulse 96 11/12/21 07:29 Resp 17 11/12/21 07:29 BP 123/57 L 11/12/21 07:29 Pulse Ox 98 11/12/21 07:29 BMI result Body Mass Index 21.4 <Hiwot Haider PA-C - Last Filed: 11/12/21 08:14> Const: General: comfortable, no acute distress and alert <Hiwot Haider PA-C - Last Filed: 11/12/21 08:14> Orientation/consciousness: patient oriented x3 <Hiwot Haider PA-C - Last Filed: 11/12/21 08:14> Resp: Effort & Inspection: normal respiratory effort <ALEXANDRIA Keita Last Filed: 11/12/21 08:14> Cardio: Rate: regular rate <Hiwot Haider PA-C - Last Filed: 11/12/21 08:14> GI: Inspection: No distended <Hiwot Haider PA-C - Last Filed: 11/12/21 08:14> Palpation (GI): Soft to palpation, Tenderness to palpation present (GI) in the RLQ, at McBurney's point and suprapubicly; Negative for with no rebound tenderness and Rovsing's sign negative, no guarding and not rigid <ALEXANDRIA Keita Last Filed: 11/12/21 08:14> Percussion: Yes normal to percussion <AL[place]RIA Keita Last Filed: 11/12/21 08:14> Skin: General skin exam: no rashes or lesions noted <Hiwot Haider PA-C - Last Filed: 11/12/21 08:14> Neuro: General: patient oriented x3 <Hiwot Haider PA-C - Last Filed: 11/12/21 08:14> Extrem: General: Yes no clubbing, cyanosis or edema <Hiwot Haider PA-C - Last Filed: 11/12/21 08:14> Objective Data Active Medications Lactated Ringer's (Lr) 1,000 mls @ 150 mls/hr IVCONT .Q6H40M [facility] Last Admin: 11/12/21 02:11 Dose: 150 mls/hr Documented by: ALIYA Piperacillin Sod/Tazobactam (Sod 3.375 gm/ Sodium Chloride) 50 mls @ 100 mls/hr IV Q6H [facility] Last Infusion: 11/12/21 06:48 Dose: 0 mls/hr Documented by: ALIYA Acetaminophen (Ofirmev) 1,000 mg in 100 mls @ 400 mls/hr IV Q6H [facility] Last Admin: 11/12/21 07:35 Dose: 400 mls/hr Documented by: CONNOR Ketorolac Tromethamine (Ketorolac Tromethamine 30 Mg/Ml Vial) 30 mg IVPUSH Q6H PRN PRN Reason: Pain, Moderate (Pain Scale 4-6 Last Admin: 11/11/21 17:47 Dose: 30 mg Documented by: [place] Morphine Sulfate (Morphine Sulfate 4 Mg/Ml Cartridge) 4 mg IVPUSH Q4H PRN; Protocol PRN Reason: Pain, Severe (Pain Scale 7-10) Last Admin: 11/12/21 04:30 Dose: 4 mg Documented by: ALIYA Ondansetron HCl (Ondansetron Hcl 4 Mg/2 Ml Vial) 4 mg IVPUSH Q8H PRN PRN Reason: Nausea and Vomiting Oxycodone HCl (Oxycodone Hcl Immed Release 5 Mg Tablet) 5 mg PO Q6H PRN PRN Reason: Pain, Moderate (Pain Scale 4-6 Pharmacy Consult (Consult Rx Perform Med Rec) 1 each MISCELLANE ONCE PRN PRN Reason: Consult order Sodium Chloride (0.9 % Sodium Chloride Flush 3 Ml Syringe) 3 ml IVFLUSH QSHIFT [facility] Last Admin: 11/12/21 07:44 Dose: 3 ml Documented by: CONNOR <Hiwot Haider PA-C - Last Filed: 11/12/21 08:14> Labs CBC & Chem 7: : 11/12/21 05:21 11/12/21 05:21 <Hiwot Haider PA-C - Last Filed: 11/12/21 08:14> Labs: Laboratory Results - last 24 hr 11/11/21 11/11/21 11/11/21 08:21 08:21 08:21 MCV 90.6 MCH 30.0 MCHC 33.1 RDW 12.6 Plt Count 263 MPV 9.5 Immature Gran % (Auto) 1.0 H Neut % (Auto) 90.5 H Lymph % (Auto) 3.3 L [place] % (Auto) 4.9 Eos % (Auto) 0.0 Baso % (Auto) 0.3 Lymph # (Auto) 1.0 L [place] # (Auto) 1.5 H Eos # (Auto) 0.0 Baso # (Auto) 0.1 Abs Immat Gran (auto) 0.31 H Absolute Neuts (auto) 28.2 H Absolute Nucleated RBC 0.000 Nucleated RBC % (auto) 0.0 Neutrophils % (Manual) Band Neutrophils % Lymphocytes % (Manual) Monocytes % (Manual) Eosinophils % (Manual) Basophils % (Manual) Abs Neuts (Manual) Lymphocytes # (Manual) Monocytes # (Manual) Eosinophils # (Manual) Basophils # (Manual) Toxic Granulation Toxic Vacuolation Platelet Estimate Plt Morphology Comment RBC Morphology Smear Tech's Comments VERIFIED Anion Gap 18 Estim Creat Clear Calc 123.3 Estimated GFR > 60 Random Glucose 143 H Lactic Acid Calcium 9.1 Total Bilirubin 1.8 H Direct Bilirubin 0.7 H AST 20 ALT 9 Alkaline Phosphatase 66 Total Protein 7.6 Albumin 3.9 Lipase 5 L Urine Color Urine Appearance Urine pH Ur Specific [place] Urine Protein Urine Glucose (UA) Urine Ketones Urine Blood Urine Nitrite Ur Leukocyte Esterase Urine RBC Urine WBC Ur Squamous Epith Cells Amorphous Sediment Urine Bacteria Granular Casts Urine Test COVID-19 (ANDRADE) Negative COVID-19 Clin Com See Note 11/11/21 11/11/21 11/11/21 09:48 09:49 15:56 MCV MCH MCHC RDW Plt Count MPV Immature Gran % (Auto) Neut % (Auto) Lymph % (Auto) [place] % (Auto) Eos % (Auto) Baso % (Auto) Lymph # (Auto) [place] # (Auto) Eos # (Auto) Baso # (Auto) Abs Immat Gran (auto) Absolute Neuts (auto) Absolute Nucleated RBC Nucleated RBC % (auto) Neutrophils % (Manual) Band Neutrophils % Lymphocytes % (Manual) Monocytes % (Manual) Eosinophils % (Manual) Basophils % (Manual) Abs Neuts (Manual) Lymphocytes # (Manual) Monocytes # (Manual) Eosinophils # (Manual) Basophils # (Manual) Toxic Granulation Toxic Vacuolation Platelet Estimate Plt Morphology Comment RBC Morphology Smear Tech's Comments Anion Gap Estim Creat Clear Calc Estimated GFR Random Glucose Lactic Acid Cancelled Calcium Total Bilirubin Direct Bilirubin AST ALT Alkaline Phosphatase Total Protein Albumin Lipase Urine Color DK YELLOW Urine Appearance CLOUDY Urine pH 6.0 Ur Specific [place] >= 1.030 H Urine Protein 3+ H Urine Glucose (UA) 100 H Urine Ketones 40 Urine Blood 2+ H Urine Nitrite POS H Ur Leukocyte Esterase NEG Urine RBC 0-2 Urine WBC 0-2 Ur Squamous Epith Cells 1+ Amorphous Sediment 4+ Urine Bacteria 3+ Granular Casts 5-9 Urine Test NEGATIVE COVID-19 (ANDRADE) COVID-19 Clin Com 11/12/21 11/12/21 05:21 05:21 MCV 91.7 MCH 30.0 MCHC 32.7 RDW 12.9 Plt Count 217 MPV 10.4 Immature Gran % (Auto) Cancelled Neut % (Auto) Cancelled Lymph % (Auto) Cancelled [place] % (Auto) Cancelled Eos % (Auto) Cancelled Baso % (Auto) Cancelled Lymph # (Auto) Cancelled [place] # (Auto) Cancelled Eos # (Auto) Cancelled Baso # (Auto) Cancelled Abs Immat Gran (auto) Cancelled Absolute Neuts (auto) Cancelled Absolute Nucleated RBC 0.000 Nucleated RBC % (auto) 0.0 Neutrophils % (Manual) 79 H Band Neutrophils % 11 H Lymphocytes % (Manual) 3 L Monocytes % (Manual) 4 Eosinophils % (Manual) 2 Basophils % (Manual) 1 Abs Neuts (Manual) 21.0 H Lymphocytes # (Manual) 0.7 L Monocytes # (Manual) 0.9 Eosinophils # (Manual) 0.5 H Basophils # (Manual) 0.2 Toxic Granulation PRESENT Toxic Vacuolation PRESENT Platelet Estimate NORMAL Plt Morphology Comment NORMAL RBC Morphology NORMAL Smear Tech's Comments Anion Gap 14 Estim Creat Clear Calc 100.0 Estimated GFR > 60 Random Glucose 72 Lactic Acid Calcium 8.1 L D Total Bilirubin Direct Bilirubin AST ALT Alkaline Phosphatase Total Protein Albumin Lipase Urine Color Urine Appearance Urine pH Ur Specific [place] Urine Protein Urine Glucose (UA) Urine Ketones Urine Blood Urine Nitrite Ur Leukocyte Esterase Urine RBC Urine WBC Ur Squamous Epith Cells Amorphous Sediment Urine Bacteria Granular Casts Urine Test COVID-19 (ANDRADE) COVID-19 Clin Com <ALEXANDRIA Keita Last Filed: 11/12/21 08:14> Procedures Date of Service Date of Service: 11/12/21 <ALEXANDRIA Keita Last Filed: 11/12/21 08:14> Progress Note: A&P Assessment and plan (1) Perforated appendicitis: Status: Acute <ALEXANDRIA Keita Last Filed: 11/12/21 08:14> Plan 36 year old female admitted with perforated appendicitis. Thickened appendix with a few foci of gas and significant RLQ inflammatory changes present on CT scan. Decision was made to trial nonoperative treatment with plan for appendec jake down the line once acute inflammation resolves. Seems to be improving with supportive measures. She overall feels improved with less RLQ pain and less tenderness on exam. VSS. Remains without peritoneal signs. WBC count also significantly improved this morning. Cont IV zosyn, IVF. Will advance to clear liquid diet as tolerated. Repeat labs in am. Possible repeat CT scan prior to discharge/pending clinical course. Patient comfortable with plan. <ALEXANDRIA Keita Last Filed: 11/12/21 08:14> 36 year old female admitted with perforated appendicitis. Thickened appendix with a few foci of gas and significant RLQ inflammatory changes present on CT scan. Decision was made to trial nonoperative treatment with plan for appendectomy down the line once acute inflammation resolves. Seems to be improving with supportive measures. She overall feels improved with less RLQ pain and less tenderness on exam. VSS. Remains without peritoneal signs. WBC count also significantly improved this morning. Cont IV zosyn, IVF. Will advance to clear liquid diet as tolerated. Repeat labs in am. Possible repeat CT scan prior to discharge/pending clinical course. Patient comfortable with plan. Patient seen and examined independently and I concur with the above assessment and plan. Patient seems improved today with decreased abdominal pain. Her WBC is improved as well. We will continue with IV antibiotics and follow her clinical examination. Repeat CBC ordered for tomorrow a.m.. <Jere Odom MD - Last Filed: 11/12/21 15:00> Fall Risk Details Current Medications: Current Medications Lactated Ringer's (Lr) 1,000 mls @ 150 mls/hr IVCONT .Q6H40M [facility] Last Admin: 11/12/21 02:11 Dose: 150 mls/hr Documented by: Piperacillin Sod/Tazobactam (Sod 3.375 gm/ Sodium Chloride) 50 mls @ 100 mls/hr IV Q6H [facility] Last Infusion: 11/12/21 06:48 Dose: Infused Documented by: Acetaminophen (Ofirmev) 1,000 mg in 100 mls @ 400 mls/hr IV Q6H [facility] Last Admin: 11/12/21 07:35 Dose: 400 mls/hr Documented by: Ketorolac Tromethamine (Ketorolac Tromethamine 30 Mg/Ml Vial) 30 mg IVPUSH Q6H PRN PRN Reason: Pain, Moderate (Pain Scale 4-6 Last Admin: 11/11/21 17:47 Dose: 30 mg Documented by: Morphine Sulfate (Morphine Sulfate 4 Mg/Ml Cartridge) 4 mg IVPUSH Q4H PRN; Protocol PRN Reason: Pain, Severe (Pain Scale 7-10) Last Admin: 11/12/21 04:30 Dose: 4 mg Documented by: Ondansetron HCl (Ondansetron Hcl 4 Mg/2 Ml Vial) 4 mg IVPUSH Q8H PRN PRN Reason: Nausea and Vomiting Oxycodone HCl (Oxycodone Hcl Immed Release 5 Mg Tablet) 5 mg PO Q6H PRN PRN Reason: Pain, Moderate (Pain Scale 4-6 Pharmacy Consult (Consult Rx Perform Med Rec) 1 each MISCELLANE ONCE PRN PRN Reason: Consult order Sodium Chloride (0.9 % Sodium Chloride Flush 3 Ml Syringe) 3 ml IVFLUSH QSHIFT [facility] Last Admin: 11/12/21 07:44 Dose: 3 ml Documented by: <Hiwot Haider PA-C - Last Filed: 11/12/21 08:14> Time Spent With Patient Time: Total time spent is greater than 50% in coordination of care (as documented) at patient's floor/unit and/or counseling patient: <Hiwot Haider PA-C - Last Filed: 11/12/21 08:14> Quality Stroke Does the patient have a stroke diagnosis?: No <Hiwot Haider PA-C - Last Filed: 11/12/21 08:14> VTE Prior VTE?: No <Hiwot Haider PA-C - Last Filed: 11/12/21 08:14> VTE Risk Level:: Surgical - moderate <Hiwot Haider PA-C - Last Filed: 11/12/21 08:14> VTE Device Contraindication: N/A - Device Ordered <Hiwot Haider PA-C - Last Filed: 11/12/21 0 8:14> VTE Drug Contraindication: Treatment Not Indicated <Hiwot Haider PA-C - Last Filed: 11/12/21 08:14>
[2021-11-12] MEDS: ondansetron HCL 4 MG/2 ML VIAL IVPUSH (15:52)
[2021-11-12] MEDS: Famotidine/PF 20 MG/2 ML VIAL IVPUSH (20:19)
[2021-11-13] MEDS: Piperacillin Sodium/Tazobactam 3.375 GM in 0.9 % Sodium Chloride 50 ML IV ×5 (00:54→23:45)
[2021-11-13] MEDS: Ketorolac Tromethamine 30 MG/ML VIAL IVPUSH (03:06)
[2021-11-13] MEDS: ondansetron HCL 4 MG/2 ML VIAL IVPUSH (03:06)
[2021-11-13 03:31] VITALS: BP 122/63; PULSE 69; RESP 18; TEMP 36.8; O2SAT 96
[2021-11-13] MEDS: Lactated Ringers 1,000 ML 150 ML IVCONT ×2 (06:08→11:22)
[2021-11-13] MEDS: Pantoprazole Sodium 40 MG/10 ML VIAL IVPUSH (06:09)
[2021-11-13 06:15] LABS: Basophils Absolute Auto 0.1 X10*3/uL (0.0-0.2); Basophils Percent Auto 0.3 % (0-2); Eosinophils Absolute Auto 0.1 X10*3/uL (0.0-0.4); Eosinophils Percent Auto 0.5 % (0-4); Hematocrit 30.7 % (37.0-47.0); Imm Gran Abs Auto 0.31 X10*3/uL (0.00-0.03); Imm Gran Pct Auto 1.2 % (0.0-0.4); Lymphocytes Percent Auto 3.8 % (20-40); MANUAL DIFF FLAG SCAN; Mean Corpuscular HGB Conc 32.6 g/dl (31.0-35.0); Mean Corpuscular Hemoglobin 29.8 pg (27.0-33.0); Mean Corpuscular Volume 91.4 fL (80.0-98.0); Mean Platelet Volume 10.3 fL (9.4-12.3); Monocytes Absolute Auto 1.2 X10*3/uL (0.1-1.2); Monocytes Percent Auto 4.6 % (2-11); Neutrophils Absolute Auto 23.8 x10*3/uL (2.0-8.3); Neutrophils Percent Auto 89.6 % (45-73); Platelet Count 275 X10*3/uL (160-400); Red Blood Count 3.36 X10*6/uL (4.20-5.50); Red Cell Distribution Width 13.1 % (11.0-16.0); SCAN SMEAR FLAG 1; White Blood Count 26.5 X10*3/uL (4.8-10.8)
[2021-11-13 06:54] LABS: SLIDE REVIEW VERIFIED
[2021-11-13 07:53] VITALS: BP 110/71; PULSE 80; RESP 17; TEMP 37.2; O2SAT 93
[2021-11-13 11:21] VITALS: BP 137/71; PULSE 80; RESP 17; TEMP 36.3; O2SAT 100
[2021-11-13 15:06] VITALS: BP 119/57; PULSE 77; RESP 18; TEMP 36.7; O2SAT 97
--- NOTE | 2021-11-13 15:22 | P.PNGS_ITS ---
Subjective Subjective Date of Service: 11/13/21 Patient reports: no new complaints, feels better and tolerating liquids well Interval history: pt doing better today, feels much better, no fever, non nausea, less abdo pain and cramps Physical Exam Vital Signs: Vital Signs: Last Vital Signs Temp 98.1 F 11/13/21 15:06 Pulse 77 11/13/21 15:06 Resp 18 11/13/21 15:06 BP 119/57 L 11/13/21 15:06 Pulse Ox 97 11/13/21 15:06 BMI result Body Mass Index 21.4 Const: General: cooperative, healthy appearing and comfortable; No acute distress Orientation/consciousness: oriented to person, oriented to place and oriented to time Resp: Effort & Inspection: normal respiratory effort Auscultation: clear to auscultation bilaterally Cardio: Rate: regular rate Rhythm: regular rhythm GI: Other: soft much less tender rlq and llq, mild guarding no rebound no peritonitis active bowel sounds Skin: General skin exam: no rashes or lesions noted Neuro: General: oriented to person, oriented to place and oriented to time Extrem: General: Yes normal to inspection Psych: Appearance: grossly normal Mental Status: mental status grossly normal Objective Data Active Medications Piperacillin Sod/Tazobactam (Sod 3.375 gm/ Sodium Chloride) 50 mls @ 100 mls/hr IV Q6H [facility] Last Infusion: 11/13/21 11:43 Dose: 0 mls/hr Documented by: MONICA Acetaminophen (Ofirmev) 1,000 mg in 100 mls @ 400 mls/hr IV Q6H [facility] Last Infusion: 11/13/21 14:10 Dose: 0 mls/hr Documented by: MONICA Ketorolac Tromethamine (Ketorolac Tromethamine 30 Mg/Ml Vial) 30 mg IVPUSH Q6H PRN PRN Reason: Pain, Moderate (Pain Scale 4-6 Last Admin: 11/13/21 03:06 Dose: 30 mg Documented by: ALIYA Morphine Sulfate (Morphine Sulfate 4 Mg/Ml Cartridge) 4 mg IVPUSH Q4H PRN; Protocol PRN Reason: Pain, Severe (Pain Scale 7-10) Last Admin: 11/12/21 15:51 Dose: 4 mg Documented by: CONNOR Ondansetron HCl (Ondansetron Hcl 4 Mg/2 Ml Vial) 4 mg IVPUSH Q8H PRN PRN Reason: Nausea and Vomiting Last Admin: 11/13/21 03:06 Dose: 4 mg Documented by: ALIYA Oxycodone HCl (Oxycodone Hcl Immed Release 5 Mg Tablet) 5 mg PO Q6H PRN PRN Reason: Pain, Moderate (Pain Scale 4-6 Pantoprazole Sodium (Pantoprazole Sodium 40 Mg/10 Ml Vial) 40 mg IVPUSH DAILY@0630 [facility] Last Admin: 11/13/21 06:09 Dose: 40 mg Documented by: ALIYA Pharmacy Consult (Consult Rx Perform Med Rec) 1 each MISCELLANE ONCE PRN PRN Reason: Consult order Sodium Chloride (0.9 % Sodium Chloride Flush 3 Ml Syringe) 3 ml IVFLUSH QSHIFT [facility] Last Admin: 11/13/21 08:31 Dose: Not Given Documented by: MONICA Non-Admin Reason: IV Running Labs CBC & Chem 7: 11/13/21 05:30 11/12/21 05:21 Labs: Laboratory Results - last 24 hr 11/13/21 05:30 MCV 91.4 MCH 29.8 MCHC 32.6 RDW 13.1 Plt Count 275 D MPV 10.3 Immature Gran % (Auto) 1.2 H Neut % (Auto) 89.6 H Lymph % (Auto) 3.8 L [place] % (Auto) 4.6 Eos % (Auto) 0.5 Baso % (Auto) 0.3 Lymph # (Auto) 1.0 L [place] # (Auto) 1.2 Eos # (Auto) 0.1 Baso # (Auto) 0.1 Abs Immat Gran (auto) 0.31 H Absolute Neuts (auto) 23.8 H Absolute Nucleated RBC 0.000 Nucleated RBC % (auto) 0.0 Smear Tech's Comments VERIFIED Procedures Date of Service Date of Service: 11/13/21 Progress Note: A&P Assessment and plan (1) Perforated appendicitis: Status: Acute Plan 36 year old female with right lower quadrant pain and inflammation consistent with ruptured localized appendicitis - doing b. feels better and less tender though wbc a little higher today than yesterday. at this point she is improved so will cont with conservative therapy of clear liquids, ivf hydration iv antibiotics and fu with wbc tomorrow and eventual ct scan to evaluate the inflammation changes. if improving will consider dc home in a few days on po antibx with plan to do eventual elective exploratory laparoscop y with appendectomy and evaluation of bilateral ovaries. She understands and agrees with the plan Fall Risk Details Current Medications: Current Medications Piperacillin Sod/Tazobactam (Sod 3.375 gm/ Sodium Chloride) 50 mls @ 100 mls/hr IV Q6H [facility] Last Infusion: 11/13/21 11:43 Dose: Infused Documented by: Acetaminophen (Ofirmev) 1,000 mg in 100 mls @ 400 mls/hr IV Q6H [facility] Last Infusion: 11/13/21 14:10 Dose: Infused Documented by: Ketorolac Tromethamine (Ketorolac Tromethamine 30 Mg/Ml Vial) 30 mg IVPUSH Q6H PRN PRN Reason: Pain, Moderate (Pain Scale 4-6 Last Admin: 11/13/21 03:06 Dose: 30 mg Documented by: Morphine Sulfate (Morphine Sulfate 4 Mg/Ml Cartridge) 4 mg IVPUSH Q4H PRN; Protocol PRN Reason: Pain, Severe (Pain Scale 7-10) Last Admin: 11/12/21 15:51 Dose: 4 mg Documented by: Ondansetron HCl (Ondansetron Hcl 4 Mg/2 Ml Vial) 4 mg IVPUSH Q8H PRN PRN Reason: Nausea and Vomiting Last Admin: 11/13/21 03:06 Dose: 4 mg Documented by: Oxycodone HCl (Oxycodone Hcl Immed Release 5 Mg Tablet) 5 mg PO Q6H PRN PRN Reason: Pain, Moderate (Pain Scale 4-6 Pantoprazole Sodium (Pantoprazole Sodium 40 Mg/10 Ml Vial) 40 mg IVPUSH DAILY@0630 [facility] Last Admin: 11/13/21 06:09 Dose: 40 mg Documented by: Pharmacy Consult (Consult Rx Perform Med Rec) 1 each MISCELLANE ONCE PRN PRN Reason: Consult order Sodium Chloride (0.9 % Sodium Chloride Flush 3 Ml Syringe) 3 ml IVFLUSH QSHIFT [facility] Last Admin: 11/13/21 08:31 Dose: Not Given Documented by: Time Spent With Patient Time: Total time spent is greater than 50% in coordination of care (as documented) at patient's floor/unit and/or counseling patient: Quality Stroke Does the patient have a stroke diagnosis?: No VTE Prior VTE?: No VTE Risk Level:: Surgical - moderate VTE Device Contraindication: N/A - Device Ordered VTE Drug Contraindication: Treatment Not Indicated
[2021-11-13] MEDS: 0.9 % Sodium Chloride 1,000 ML 100 ML IVCONT (18:38)
[2021-11-13 19:12] VITALS: BP 119/57; PULSE 88; RESP 18; TEMP 37.2; O2SAT 98
[2021-11-13 23:55] VITALS: BP 103/57; PULSE 82; RESP 18; TEMP 36.9; O2SAT 97
[2021-11-14] VITALS (7 sets, daily range): BP systolic 110–155; BP diastolic 53–72; PULSE 55–80; RESP 17–20; TEMP 36.1–37.6; O2SAT 95–100
[2021-11-14] MEDS: ondansetron HCL 4 MG/2 ML VIAL IVPUSH ×2 (01:36→13:28)
[2021-11-14] MEDS: 0.9 % Sodium Chloride 1,000 ML 100 ML IVCONT ×3 (01:58→23:23)
[2021-11-14] MEDS: Piperacillin Sodium/Tazobactam 3.375 GM in 0.9 % Sodium Chloride 50 ML IV ×4 (05:10→23:23)
[2021-11-14] MEDS: Pantoprazole Sodium 40 MG/10 ML VIAL IVPUSH (05:10)
[2021-11-14 06:23] LABS: MANUAL DIFF FLAG NO
[2021-11-14 06:27] LABS: Basophils Absolute Auto 0.1 X10*3/uL (0.0-0.2); Basophils Percent Auto 0.3 % (0-2); Eosinophils Absolute Auto 0.4 X10*3/uL (0.0-0.4); Eosinophils Percent Auto 1.8 % (0-4); Hematocrit 30.1 % (37.0-47.0); Hemoglobin 9.7 g/dl (12.0-16.0); Imm Gran Abs Auto 0.33 X10*3/uL (0.00-0.03); Imm Gran Pct Auto 1.4 % (0.0-0.4); Lymphocytes Absolute Auto 1.4 X10*3/uL (1.2-4.9); Lymphocytes Percent Auto 6.1 % (20-40); Mean Corpuscular HGB Conc 32.2 g/dl (31.0-35.0); Mean Corpuscular Hemoglobin 29.6 pg (27.0-33.0); Mean Corpuscular Volume 91.8 fL (80.0-98.0); Monocytes Absolute Auto 1.3 X10*3/uL (0.1-1.2); Monocytes Percent Auto 5.4 % (2-11); Neutrophils Absolute Auto 19.9 x10*3/uL (2.0-8.3); Platelet Count 324 X10*3/uL (160-400); Red Blood Count 3.28 X10*6/uL (4.20-5.50); Red Cell Distribution Width 13.3 % (11.0-16.0); White Blood Count 23.3 X10*3/uL (4.8-10.8)
[2021-11-14] MEDS: Ketorolac Tromethamine 30 MG/ML VIAL IVPUSH (13:32)
[2021-11-14 13:34] LABS: CDiff Gene PCR NEGATIVE (Negative)
--- NOTE | 2021-11-14 21:35 | PM.PNGS ---
Subjective Subjective Date of Service: 11/14/21 Interval history: pt is complaining of loose stools, was nauseated and threw up overnight Physical Exam Vital Signs: Vital Signs: Last Vital Signs Temp 99.0 F 11/14/21 20:00 Pulse 74 11/14/21 20:00 Resp 18 11/14/21 20:00 BP 118/72 11/14/21 20:00 Pulse Ox 99 11/14/21 20:00 BMI result Body Mass Index 21.4 Objective Data Active Medications Piperacillin Sod/Tazobactam (Sod 3.375 gm/ Sodium Chloride) 50 mls @ 100 mls/hr IV Q6H [facility] Last Infusion: 11/14/21 18:09 Dose: 0 mls/hr Documented by: MONICA Sodium Chloride (Ns) 1,000 mls @ 100 mls/hr IVCONT .Q10H [facility] Last Admin: 11/14/21 14:54 Dose: 100 mls/hr Documented by: MONICA Acetaminophen (Ofirmev) 1,000 mg in 100 mls @ 400 mls/hr IV Q6H PRN PRN Reason: Pain, Moderate (Pain Scale 4-6 Stop: 11/15/21 08:14 Ketorolac Tromethamine (Ketorolac Tromethamine 30 Mg/Ml Vial) 30 mg IVPUSH Q6H PRN PRN Reason: Pain, Moderate (Pain Scale 4-6 Last Admin: 11/14/21 13:32 Dose: 30 mg Documented by: MONICA Morphine Sulfate (Morphine Sulfate 4 Mg/Ml Cartridge) 4 mg IVPUSH Q4H PRN; Protocol PRN Reason: Pain, Severe (Pain Scale 7-10) Last Admin: 11/12/21 15:51 Dose: 4 mg Documented by: CONNOR Ondansetron HCl (Ondansetron Hcl 4 Mg/2 Ml Vial) 4 mg IVPUSH Q8H PRN PRN Reason: Nausea and Vomiting Last Admin: 11/14/21 13:28 Dose: 4 mg Documented by: MONICA Oxycodone HCl (Oxycodone Hcl Immed Release 5 Mg Tablet) 5 mg PO Q6H PRN PRN Reason: Pain, Moderate (Pain Scale 4-6 Pantoprazole Sodium (Pantoprazole Sodium 40 Mg/10 Ml Vial) 40 mg IVPUSH DAILY@0630 [facility] Last Admin: 11/14/21 05:10 Dose: 40 mg Documented by: KIM Pharmacy Consult (Consult Rx Perform Med Rec) 1 each MISCELLANE ONCE PRN PRN Reason: Consult order Sodium Chloride (0.9 % Sodium Chloride Flush 3 Ml Syringe) 3 ml IVFLUSH QSHIFT [facility] Last Admin: 11/14/21 14:52 Dose: Not Given Documented by: MONICA Non-Admin Reason: IV Running Labs CBC & Chem 7: 11/14/21 05:23 11/12/21 05:21 Labs: Laboratory Results - last 24 hr 11/14/21 11/14/21 05:23 12:31 MCV 91.8 MCH 29.6 MCHC 32.2 RDW 13.3 Plt Count 324 MPV 10.0 Immature Gran % (Auto) 1.4 H Neut % (Auto) 85.0 H Lymph % (Auto) 6.1 L [place] % (Auto) 5.4 Eos % (Auto) 1.8 Baso % (Auto) 0.3 Lymph # (Auto) 1.4 [place] # (Auto) 1.3 H Eos # (Auto) 0.4 Baso # (Auto) 0.1 Abs Immat Gran (auto) 0.33 H Absolute Neuts (auto) 19.9 H Absolute Nucleated RBC 0.000 Nucleated RBC % (auto) 0.0 C. difficile Tox B Gene NEGATIVE Procedures Date of Service Date of Service: 11/14/21 Progress Note: A&P Assessment and plan (1) Perforated appendicitis: Status: Acute Plan 36 ivan old female with perforated appendix doing better - abdomen less tender, afebrile, wbc better, loose stool - c diff negative plan to cont with clear liquids, iv zosyn, check labs in am and probable repeat CT scan abdo and pelvis with po and iv contrast tomorrow. Fall Risk Details Current Medications: Current Medications Piperacillin Sod/Tazobactam (Sod 3.375 gm/ Sodium Chloride) 50 mls @ 100 mls/hr IV Q6H [facility] Last Infusion: 11/14/21 18:09 Dose: Infused Documented by: Sodium Chloride (Ns) 1,000 mls @ 100 mls/hr IVCONT .Q10H [facility] Last Admin: 11/14/21 14:54 Dose: 100 mls/hr Documented by: Acetaminophen (Ofirmev) 1,000 mg in 100 mls @ 400 mls/hr IV Q6H PRN PRN Reason: Pain, Moderate (Pain Scale 4-6 Stop: 11/15/21 08:14 Ketorolac Tromethamine (Ketorolac Tromethamine 30 Mg/Ml Vial) 30 mg IVPUSH Q6H PRN PRN Reason: Pain, Moderate (Pain Scale 4-6 Last Admin: 11/14/21 13:32 Dose: 30 mg Documented by: Morphine Sulfate (Morphine Sulfate 4 Mg/Ml Cartridge) 4 mg IVPUSH Q4H PRN; Protocol PRN Reason: Pain, Severe (Pain Scale 7-10) Last Admin: 11/12/21 15:51 Dose: 4 mg Documented by: Ondansetron HCl (Ondansetron Hcl 4 Mg/2 Ml Vial) 4 mg IVPUSH Q8H PRN PRN Reason: Nausea and Vomiting Last Admin: 11/14/21 13:28 Dose: 4 mg Documented by: Oxycodone HCl (Oxycodone Hcl Immed Release 5 Mg Tablet) 5 mg PO Q6H PRN PRN Reason: Pain, Moderate (Pain Scale 4-6 Pantoprazole Sodium (Pantoprazole Sodium 40 Mg/10 Ml Vial) 40 mg IVPUSH DAILY@0630 [facility] Last Admin: 11/14/21 05:10 Dose: 40 mg Documented by: Pharmacy Consult (Consult Rx Perform Med Rec) 1 each MISCELLANE ONCE PRN PRN Reason: Consult order Sodium Chloride (0.9 % Sodium Chloride Flush 3 Ml Syringe) 3 ml IVFLUSH [facility] Last Admin: 11/14/21 14:52 Dose: Not Given Documented by: Time Spent With Patient Time: Total time spent is greater than 50% in coordination of care (as documented) at patient's floor/unit and/or counseling patient: Quality Stroke Does the patient have a stroke diagnosis?: No VTE Prior VTE?: No VTE Risk Level:: Surgical - moderate VTE Device Contraindication: N/A - Device Ordered VTE Drug Contraindication: Treatment Not Indicated
[2021-11-15 03:43] VITALS: BP 119/56; PULSE 80; RESP 18; TEMP 37.4; O2SAT 97
[2021-11-15] MEDS: Pantoprazole Sodium 40 MG/10 ML VIAL IVPUSH (04:45)
[2021-11-15] MEDS: Piperacillin Sodium/Tazobactam 3.375 GM in 0.9 % Sodium Chloride 50 ML IV ×3 (04:45→18:38)
[2021-11-15 05:43] LABS: Basophils Absolute Auto 0.1 X10*3/uL (0.0-0.2); Basophils Percent Auto 0.4 % (0-2); Eosinophils Absolute Auto 0.5 X10*3/uL (0.0-0.4); Hematocrit 29.4 % (37.0-47.0); Hemoglobin 9.5 g/dl (12.0-16.0); Imm Gran Abs Auto 0.85 X10*3/uL (0.00-0.03); Lymphocytes Absolute Auto 2.4 X10*3/uL (1.2-4.9); Lymphocytes Percent Auto 13.8 % (20-40); MANUAL DIFF FLAG SCAN; Mean Corpuscular HGB Conc 32.3 g/dl (31.0-35.0); Mean Corpuscular Hemoglobin 29.4 pg (27.0-33.0); Mean Platelet Volume 9.4 fL (9.4-12.3); Monocytes Absolute Auto 1.2 X10*3/uL (0.1-1.2); Monocytes Percent Auto 7.2 % (2-11); Neutrophils Absolute Auto 12.1 x10*3/uL (2.0-8.3); Neutrophils Percent Auto 70.6 % (45-73); Platelet Count 325 X10*3/uL (160-400); Red Blood Count 3.23 X10*6/uL (4.20-5.50); Red Cell Distribution Width 13.7 % (11.0-16.0); SCAN SMEAR FLAG 1; White Blood Count 17.2 X10*3/uL (4.8-10.8)
[2021-11-15 06:23] LABS: SLIDE REVIEW VERIFIED
[2021-11-15 07:26] VITALS: BP 125/62; PULSE 66; RESP 18; TEMP 36.7; O2SAT 98
--- NOTE | 2021-11-15 08:57 | P.PNGS_ITS ---
Subjective Subjective Date of Service: 11/15/21 Interval history: Feeling much better overall. Pain significantly improved. No further nausea/vomiting after one episode yesterday. Tolerating liquids. Had multiple episodes of diarrhea over weekend, has now slowed overnight. Physical Exam Vital Signs: Vital Signs: Last Vital Signs Temp 98.1 F 11/15/21 07:26 Pulse 66 11/15/21 07:26 Resp 18 11/15/21 07:26 BP 125/62 11/15/21 07:26 Pulse Ox 98 11/15/21 07:26 BMI result Body Mass Index 21.4 Const: General: comfortable, no acute distress and alert Orientation/consciousness: patient oriented x3 Resp: Effort & Inspection: normal respiratory effort GI: Inspection: No distended Palpation (GI): Soft to palpation, Tenderness to palpation present (GI) in the RLQ and suprapubicly, no guarding and not rigid Percussion: Yes normal to percussion Skin: General skin exam: no rashes or lesions noted Neuro: General: patient oriented x3 Objective Data Active Medications Piperacillin Sod/Tazobactam (Sod 3.375 gm/ Sodium Chloride) 50 mls @ 100 mls/hr IV Q6H [facility] Last Infusion: 11/15/21 05:20 Dose: 0 mls/hr Documented by: IKM Sodium Chloride (Ns) 1,000 mls @ 100 mls/hr IVCONT .Q10H [facility] Last Admin: 11/14/21 23:23 Dose: 100 mls/hr Documented by: KIM Ketorolac Tromethamine (Ketorolac Tromethamine 30 Mg/Ml Vial) 30 mg IVPUSH Q6H PRN PRN Reason: Pain, Moderate (Pain Scale 4-6 Last Admin: 11/14/21 13:32 Dose: 30 mg Documented by: MONICA Morphine Sulfate (Morphine Sulfate 4 Mg/Ml Cartridge) 4 mg IVPUSH Q4H PRN; Protocol PRN Reason: Pain, Severe (Pain Scale 7-10) Last Admin: 11/12/21 15:51 Dose: 4 mg Documented by: CONNOR Ondansetron HCl (Ondansetron Hcl 4 Mg/2 Ml Vial) 4 mg IVPUSH Q8H PRN PRN Reason: Nausea and Vomiting Last Admin: 11/14/21 13:28 Dose: 4 mg Documented by: MONICA Oxycodone HCl (Oxycodone Hcl Immed Release 5 Mg Tablet) 5 mg PO Q6H PRN PRN Reason: Pain, Moderate (Pain Scale 4-6 Pantoprazole Sodium (Pantoprazole Sodium 40 Mg/10 Ml Vial) 40 mg IVPUSH DAILY@0630 [facility] Last Admin: 11/15/21 04:45 Dose: 40 mg Documented by: KIM Pharmacy Consult (Consult Rx Perform Med Rec) 1 each MISCELLANE ONCE PRN PRN Reason: Consult order Sodium Chloride (0.9 % Sodium Chloride Flush 3 Ml Syringe) 3 ml IVFLUSH QSHIFT [facility] Last Admin: 11/15/21 07:15 Dose: Not Given Documented by: MONICA Non-Admin Reason: IV Running Labs CBC & Chem 7: 11/15/21 05:28 11/12/21 05:21 Labs: Laboratory Results - last 24 hr 11/14/21 11/15/21 12:31 05:28 MCV 91.0 MCH 29.4 MCHC 32.3 RDW 13.7 Plt Count 325 MPV 9.4 Immature Gran % (Auto) 5.0 H Neut % (Auto) 70.6 Lymph % (Auto) 13.8 L [place] % (Auto) 7.2 Eos % (Auto) 3.0 Baso % (Auto) 0.4 Lymph # (Auto) 2.4 [place] # (Auto) 1.2 Eos # (Auto) 0.5 H Baso # (Auto) 0.1 Abs Immat Gran (auto) 0.85 H Absolute Neuts (auto) 12.1 H Absolute Nucleated RBC 0.000 Nucleated RBC % (auto) 0.0 Smear Tech's Comments VERIFIED C. difficile Tox B Gene NEGATIVE Procedures Date of Service Date of Service: 11/15/21 Progress Note: A&P Assessment and plan (1) Perforated appendicitis: Status: Acute Plan 36 year old female admitted with perforated appendicitis. Thickened appendix with a few foci of gas and significant RLQ inflammatory changes present on CT scan. Decision was made to trial nonoperative treatment with plan for appendectomy down the line once acute inflammation resolves. Overall improved. Abd pain improved. VSS. She does remain tender in RLQ/suprapubic but overall exam improved. WBC count downtrending this morning. Cont IV zosyn, IVF. Repeat CT scan with IV/PO contrast today. Will advance to solid diet if improved. Patient comfortable with plan. Fall Risk Details Current Medications: Current Medications Piperacillin Sod/Tazobactam (Sod 3.375 gm/ Sodium Chloride) 50 mls @ 100 mls/hr IV Q6H [facility] Last Infusion: 11/15/21 05:20 Dose: Infused Documented by: Sodium Chloride (Ns) 1,000 mls @ 100 mls/hr IVCONT .Q10H [facility] Last Admin: 11/14/21 23:23 Dose: 100 mls/hr Documented by: Ketorolac Tromethamine (Ketorolac Tromethamine 30 Mg/Ml Vial) 30 mg IVPUSH Q6H PRN PRN Reason: Pain, Moderate (Pain Scale 4-6 Last Admin: 11/14/21 13:32 Dose: 30 mg Documented by: Morphine Sulfate (Morphine Sulfate 4 Mg/Ml Cartridge) 4 mg IVPUSH Q4H PRN; Protocol PRN Reason: Pain, Severe (Pain Scale 7-10) Last Admin: 11/12/21 15:51 Dose: 4 mg Documented by: Ondansetron HCl (Ondansetron Hcl 4 Mg/2 Ml Vial) 4 mg IVPUSH Q8H PRN PRN Reason: Nausea and Vomiting Last Admin: 11/14/21 13:28 Dose: 4 mg Documented by: Oxycodone HCl (Oxycodone Hcl Immed Release 5 Mg Tablet) 5 mg PO Q6H PRN PRN Reason: Pain, Moderate (Pain Scale 4-6 Pantoprazole Sodium (Pantoprazole Sodium 40 Mg/10 Ml Vial) 40 mg IVPUSH D AILY@0630 [facility] Last Admin: 11/15/21 04:45 Dose: 40 mg Documented by: Pharmacy Consult (Consult Rx Perform Med Rec) 1 each MISCELLANE ONCE PRN PRN Reason: Consult order Sodium Chloride (0.9 % Sodium Chloride Flush 3 Ml Syringe) 3 ml IVFLUSH QSHIFT [facility] Last Admin: 11/15/21 07:15 Dose: Not Given Documented by: Time Spent With Patient Time: Total time spent is greater than 50% in coordination of care (as documented) at patient's floor/unit and/or counseling patient: Quality Stroke Does the patient have a stroke diagnosis?: No VTE Prior VTE?: No VTE Risk Level:: Surgical - moderate VTE Device Contraindication: N/A - Device Ordered VTE Drug Contraindication: Treatment Not Indicated
[2021-11-15] MEDS: 0.9 % Sodium Chloride 1,000 ML 100 ML IVCONT ×2 (10:05→23:15)
[2021-11-15 10:49] VITALS: BP 119/67; PULSE 74; RESP 18; TEMP 37.6; O2SAT 97
[2021-11-15] MEDS: ondansetron HCL 4 MG/2 ML VIAL IVPUSH (12:12)
[2021-11-15] MEDS: Ketorolac Tromethamine 30 MG/ML VIAL IVPUSH ×2 (13:07→18:38)
[2021-11-15] MEDS: iohexoL 350 MG/ML 100 ML INFUS..BTL IV (14:09)
[2021-11-15] MEDS: Diatrizoate Meglumine, Sodium 120 ML SOLUTION PR (14:11)
--- NOTE | 2021-11-15 14:36 | MHC.CM.PN ---
nurse manager rn case note electronic medical record reviewed shant with case disucssed with staff nurse , ke with patient and her , she reported she is feeling much beeter today and started on clear liquids and so far tolerating them welll she copmtiomues on iv abx , iv fluids ,iv analgeics , and ambulating in her room discharge plan home with once medically stable no services anticipated transportation family pcp jezwo up
[2021-11-15 15:16] VITALS: BP 125/55; PULSE 59; RESP 15; TEMP 36.1; O2SAT 97
--- NOTE | 2021-11-15 15:47 | PC.NURSE ---
Pt tolerating clears today. Some nausea while drinking CT contrast, zofran given with good effect
[2021-11-15] MEDS: Simethicone 80 MG TAB.CHEW PO (18:38)
[2021-11-15 19:25] VITALS: BP 117/59; PULSE 61; RESP 18; TEMP 36.1; O2SAT 97
[2021-11-15 23:41] VITALS: BP 119/63; PULSE 63; RESP 16; TEMP 37.5; O2SAT 95
[2021-11-16] MEDS: Piperacillin Sodium/Tazobactam 3.375 GM in 0.9 % Sodium Chloride 50 ML IV ×4 (00:29→17:49)
[2021-11-16 03:19] VITALS: BP 117/63; PULSE 73; RESP 18; TEMP 36.6; O2SAT 94
[2021-11-16] MEDS: Pantoprazole Sodium 40 MG/10 ML VIAL IVPUSH (05:38)
[2021-11-16 06:05] LABS: Basophils Absolute Auto 0.1 X10*3/uL (0.0-0.2); Basophils Percent Auto 0.8 % (0-2); Eosinophils Absolute Auto 0.5 X10*3/uL (0.0-0.4); Eosinophils Percent Auto 3.2 % (0-4); Hematocrit 31.3 % (37.0-47.0); Imm Gran Abs Auto 1.28 X10*3/uL (0.00-0.03); Imm Gran Pct Auto 8.2 % (0.0-0.4); Lymphocytes Absolute Auto 2.2 X10*3/uL (1.2-4.9); Lymphocytes Percent Auto 14.3 % (20-40); Mean Corpuscular HGB Conc 31.9 g/dl (31.0-35.0); Mean Corpuscular Volume 90.7 fL (80.0-98.0); Mean Platelet Volume 10.5 fL (9.4-12.3); Monocytes Absolute Auto 1.1 X10*3/uL (0.1-1.2); Monocytes Percent Auto 6.8 % (2-11); Neutrophils Absolute Auto 10.4 x10*3/uL (2.0-8.3); Neutrophils Percent Auto 66.7 % (45-73); Platelet Count 309 X10*3/uL (160-400); Red Blood Count 3.45 X10*6/uL (4.20-5.50); SCAN SMEAR FLAG 1; White Blood Count 15.6 X10*3/uL (4.8-10.8)
[2021-11-16 06:09] LABS: MANUAL DIFF FLAG SCAN
[2021-11-16 06:27] LABS: SLIDE REVIEW VERIFIED
[2021-11-16] MEDS: Ketorolac Tromethamine 30 MG/ML VIAL IVPUSH ×3 (06:32→23:11)
--- NOTE | 2021-11-16 07:34 | P.PNGS_ITS ---
Subjective Subjective Date of Service: 11/16/21 Interval history: No new compliants. Had a small BM this morning, but still has gas pains. Reports feeling anxious this morning. Physical Exam Vital Signs: Vital Signs: Last Vital Signs Temp 98 F 11/16/21 03:19 Pulse 73 11/16/21 03:19 Resp 18 11/16/21 03:19 BP 117/63 11/16/21 03:19 Pulse Ox 94 11/16/21 03:19 BMI result Body Mass Index 21.4 Const: General: comfortable and tired appearing Nutritional Appearance: well nourished Orientation/consciousness: patient oriented x3 Limitations: no limitations Resp: Effort & Inspection: normal respiratory effort, no respiratory distress and not tachypneic GI: Other: soft, mild tenderness in the RLQ, no rebound, no mass Skin: Other: flush cheeks, warm and dry, no rash Neuro: General: patient oriented x3 Extrem: Other: no pedal edema Objective Data Active Medications Piperacillin Sod/Tazobactam (Sod 3.375 gm/ Sodium Chloride) 50 mls @ 100 mls/hr IV Q6H [facility] Last Infusion: 11/16/21 06:20 Dose: 0 mls/hr Documented by: JORDIN Sodium Chloride (Ns) 1,000 mls @ 100 mls/hr IVCONT .Q10H [facility] Last Admin: 11/15/21 23:15 Dose: 100 mls/hr Documented by: ALBA Ketorolac Tromethamine (Ketorolac Tromethamine 30 Mg/Ml Vial) 30 mg IVPUSH Q6H PRN PRN Reason: Pain, Moderate (Pain Scale 4-6 Last Admin: 11/16/21 06:32 Dose: 30 mg Documented by: JORDIN Morphine Sulfate (Morphine Sulfate 4 Mg/Ml Cartridge) 4 mg IVPUSH Q4H PRN; Protocol PRN Reason: Pain, Severe (Pain Scale 7-10) Last Admin: 11/12/21 15:51 Dose: 4 mg Documented by: CONNOR Ondansetron HCl (Ondansetron Hcl 4 Mg/2 Ml Vial) 4 mg IVPUSH Q8H PRN PRN Reason: Nausea and Vomiting Last Admin: 11/15/21 12:12 Dose: 4 mg Documented by: MONICA Oxycodone HCl (Oxycodone Hcl Immed Release 5 Mg Tablet) 5 mg PO Q6H PRN PRN Reason: Pain, Moderate (Pain Scale 4-6 Pantoprazole Sodium (Pantoprazole Sodium 40 Mg/10 Ml Vial) 40 mg IVPUSH DAILY@0630 [facility] Last Admin: 11/16/21 05:38 Dose: 40 mg Documented by: JORDIN Pharmacy Consult (Consult Rx Perform Med Rec) 1 each MISCELLANE ONCE PRN PRN Reason: Consult order Simethicone (Simethicone 80 Mg Tab.Chew) 80 mg PO QIDWMHS PRN PRN Reason: gas pain Last Admin: 11/15/21 18:38 Dose: 80 mg Documented by: COLLILY Sodium Chloride (0.9 % Sodium Chloride Flush 3 Ml Syringe) 3 ml IVFLUSH QSHIFT [facility] Last Admin: 11/16/21 00:31 Dose: Not Given Documented by: JORDIN Non-Admin Reason: IV Running Labs CBC & Chem 7: 11/16/21 05:43 11/12/21 05:21 Labs: Laboratory Results - last 24 hr 11/16/21 05:43 MCV 90.7 MCH 29.0 MCHC 31.9 RDW 14.0 Plt Count 309 MPV 10.5 Immature Gran % (Auto) 8.2 H Neut % (Auto) 66.7 Lymph % (Auto) 14.3 L [place] % (Auto) 6.8 Eos % (Auto) 3.2 Baso % (Auto) 0.8 Lymph # (Auto) 2.2 [place] # (Auto) 1.1 Eos # (Auto) 0.5 H Baso # (Auto) 0.1 Abs Immat Gran (auto) 1.28 H Absolute Neuts (auto) 10.4 H Absolute Nucleated RBC 0.000 Nucleated RBC % (auto) 0.0 Smear Tech's Comments VERIFIED Imaging CT scan - abdomen: Radiologist's impression: Impressions Abdomen/Pelvis CT 11/15/21 14:13 IMPRESSION: *Further progression, more inflammation and fat stranding in the mid abdomen and pelvis likely phlegmon possible peritonitis from recently ruptured appendix. At this time however there is no loculated walled off fluid collection abscess. Given the degree of inflammation would recommend Continued imaging surveillance, May consider follow-up CT in one week. *Dilated fluid-filled small bowel loops throughout the abdomen suggesting an ileus. *There is 4 cm cystic structure in the left side of the pelvis probably left ovarian cyst unchanged. *Few mildly prominent mesenteric lymph nodes likely reactive. *Mild atelectasis at lung bases. *Mild ascites. Procedures Date of Service Date of Service: 11/16/21 Progress Note: A&P Assessment and plan (1) Perforated appendicitis: Status: Acute Plan 36 year old female admitted with perforated appendicitis. Thickened appendix with a few foci of gas and significant RLQ inflammatory changes present on CT scan. Decision was made to trial nonoperative treatment with plan for appendectomy down the line once acute inflammation resolves. Patient continues to make improvement with decreased abdominal pain and no further nausea and vomiting. CT reviewed with patient; reveals inflammation but no abscess or extraperitoneal air collections. Probable ileus with dilated small bowel. Appendix not visualized, probably due to previous rupture. WBC down treading as well Plan: Continue IV antibiotics for 2 more days before conversion to po. Will add Ativan for anxiety prn. Advance to regular diet and d/c IVFs. Encouraged OOB and ambulation. Fall Risk Details Current Medications: Current Medications Piperacillin Sod/Tazobactam (Sod 3.375 gm/ Sodium Chloride) 50 mls @ 100 mls/hr IV Q6H [facility] Last Infusion: 11/16/21 06:20 Dose: Infused Documented by: Sodium Chloride (Ns) 1,000 mls @ 100 mls/hr IVCONT .Q10H [facility] Last Admin: 11/15/21 23:15 Dose: 100 mls/hr Documented by: Ketorolac Tromethamine (Ketorolac Tromethamine 30 Mg/Ml Vial) 30 mg IVPUSH Q6H PRN PRN Reason: Pain, Moderate (Pain Scale 4-6 Last Admin: 11/16/21 06:32 Dose: 30 mg Documented by: Morphine Sulfate (Morphine Sulfate 4 Mg/Ml Cartridge) 4 mg IVPUSH Q4H PRN; Protocol PRN Reason: Pain, Severe (Pain Scale 7-10) Last Admin: 11/12/21 15:51 Dose: 4 mg Documented by: Ondansetron HCl (Ondansetron Hcl 4 Mg/2 Ml Vial) 4 mg IVPUSH Q8H PRN PRN Reason: Nausea and Vomiting Last Admin: 11/15/21 12:12 Dose: 4 mg Documented by: Oxycodone HCl (Oxycodone Hcl Immed Release 5 Mg Tablet) 5 mg PO Q6H PRN PRN Reason: Pain, Moderate (Pain Scale 4-6 Pantoprazole Sodium (Pantoprazole Sodium 40 Mg/10 Ml Vial) 40 mg IVPUSH DAILY@0630 [facility] Last Admin: 11/16/21 05:38 Dose: 40 mg Documented by: Pharmacy Consult (Consult Rx Perform Med Rec) 1 each MISCELLANE ONCE PRN PRN Reason: Consult order Simethicone (Simethicone 80 Mg Tab.Chew) 80 mg PO QIDWMHS PRN PRN Reason: gas pain Last Admin: 11/15/21 18:38 Dose: 80 mg Documented by: Sodium Chloride (0.9 % Sodium Chloride Flush 3 Ml Syringe) 3 ml IVFLUSH QSHIFT [facility] Last Admin: 11/16/21 00:31 Dose: Not Given Documented by: Time Spent With Patient Time: Total time spent is greater than 50% in coordination of care (as documented) at patient's floor/unit and/or counseling patient: Quality Stroke Does the patient have a stroke diagnosis?: No VTE Prior VTE?: No VTE Risk Level:: Surgical - moderate VTE Device Contraindication: N/A - Device Ordered VTE Drug Contraindication: Treatment Not Indicated
[2021-11-16 08:00] VITALS: BP 120/62; PULSE 60; RESP 16; TEMP 37; O2SAT 98
[2021-11-16] MEDS: LORazepam 0.5 MG TABLET 0.25 MG PO ×2 (09:00→20:50)
[2021-11-16] MEDS: ondansetron HCL 4 MG/2 ML VIAL IVPUSH (09:02)
[2021-11-16] MEDS: 0.9 % Sodium Chloride 1,000 ML 100 ML IVCONT (10:21)
[2021-11-16 11:09] VITALS: BP 122/60; PULSE 71; RESP 18; TEMP 37.2; O2SAT 99
--- NOTE | 2021-11-16 13:27 | MHC.CM.PN ---
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
[2021-11-16] MEDS: Simethicone 80 MG TAB.CHEW PO ×2 (13:45→23:11)
[2021-11-16 15:14] VITALS: BP 119/53; PULSE 66; RESP 18; TEMP 37.5; O2SAT 97
[2021-11-16] MEDS: 0.9 % Sodium Chloride Flush 3 ML SYRINGE IVFLUSH (17:50)
[2021-11-16 19:25] VITALS: BP 114/52; PULSE 56; RESP 18; TEMP 37.7; O2SAT 99
[2021-11-16 23:55] VITALS: BP 127/58; PULSE 67; RESP 18; TEMP 37.7; O2SAT 96
[2021-11-17] MEDS: Piperacillin Sodium/Tazobactam 3.375 GM in 0.9 % Sodium Chloride 50 ML IV ×4 (00:55→18:04)
[2021-11-17] MEDS: 0.9 % Sodium Chloride Flush 3 ML SYRINGE IVFLUSH ×3 (00:55→15:09)
[2021-11-17 04:00] VITALS: BP 109/59; PULSE 64; RESP 18; TEMP 36.2; O2SAT 96
[2021-11-17 05:44] LABS: Hematocrit 27.3 % (37.0-47.0); Hemoglobin 9.3 g/dl (12.0-16.0); Mean Corpuscular HGB Conc 34.1 g/dl (31.0-35.0); Mean Corpuscular Hemoglobin 29.9 pg (27.0-33.0); Mean Corpuscular Volume 87.8 fL (80.0-98.0); Mean Platelet Volume 9.6 fL (9.4-12.3); Platelet Count 271 X10*3/uL (160-400); Red Blood Count 3.11 X10*6/uL (4.20-5.50); Red Cell Distribution Width 13.8 % (11.0-16.0); White Blood Count 13.3 X10*3/uL (4.8-10.8)
[2021-11-17] MEDS: Pantoprazole Sodium 40 MG/10 ML VIAL IVPUSH (05:57)
[2021-11-17 06:27] LABS: Band Neutrophils Percent 4 % (3-5); Eosinophils Absolute Manual 0.3 X10*3/uL (0.0-0.4); Eosinophils Percent Manual 2 % (0-4); Lymphocytes Absolute Manual 1.7 X10*3/uL (1.2-4.9); Lymphocytes Percent Manual 13 % (20-40); Metamyelocytes Absolute 0.1 X10*3/uL; Metamyelocytes Percent 1 %; Monocytes Absolute Manual 1.1 X10*3/uL (0.1-1.2); Monocytes Percent Manual 8 % (2-11); Myelocytes Absolute 0.1 X10*/uL; Myelocytes Percent 1 %; Neutrophils Absolute Manual 9.8 X10*3/uL (2.0-8.3); Neutrophils Percent Manual 70 % (45-73); Promyelocytes Absolute 0.1 X10*3/uL; Promyelocytes Percent 1 %
[2021-11-17 06:28] LABS: Burr Cells 2+ (3-5) /OIF; Macrocytosis 1+ (5-14) /OIF; Platelet Estimate NORMAL (NORMAL); Platelet Morphology Comment NORMAL; Polychromasia 1+ (0-2) /OIF; RBC Morphology NORMAL
[2021-11-17 07:38] VITALS: BP 137/63; PULSE 57; RESP 21; TEMP 37.6; O2SAT 96
[2021-11-17] MEDS: LORazepam 0.5 MG TABLET 0.25 MG PO ×2 (08:35→22:31)
[2021-11-17] MEDS: Ketorolac Tromethamine 30 MG/ML VIAL IVPUSH ×3 (08:36→22:37)
--- NOTE | 2021-11-17 10:22 | PM.PNGS ---
Subjective Subjective Date of Service: 11/17/21 Interval history: Feels much better this morning. Pain is improved- more just sore now. Tolerating regular diet. Did have some bloating yesterday but now passing more flatus. Physical Exam Vital Signs: Vital Signs: Last Vital Signs Temp 99.6 F 11/17/21 07:38 Pulse 57 11/17/21 07:38 Resp 21 H 11/17/21 07:38 BP 137/63 11/17/21 07:38 Pulse Ox 96 11/17/21 07:38 BMI result Body Mass Index 21.4 Const: General: no acute distress, well developed and alert Orientation/consciousness: patient oriented x3 Resp: Effort & Inspection: normal respiratory effort GI: Inspection: No distended Palpation (GI): Soft to palpation and Tenderness to palpation present (GI) in the RLQ and suprapubicly Skin: General skin exam: no rashes or lesions noted Neuro: General: patient oriented x3 and moves all extremities Extrem: General: Yes no clubbing, cyanosis or edema Objective Data Active Medications Acetaminophen (Acetaminophen 325 Mg Tablet) 650 mg PO Q6H PRN PRN Reason: fever, pain Piperacillin Sod/Tazobactam (Sod 3.375 gm/ Sodium Chloride) 50 mls @ 100 mls/hr IV Q6H NEHEMIAH Last Infusion: 11/17/21 06:34 Dose: 0 mls/hr Documented by: TAIRQ Ketorolac Tromethamine (Ketorolac Tromethamine 30 Mg/Ml Vial) 30 mg IVPUSH Q6H PRN PRN Reason: Pain, Moderate (Pain Scale 4-6 Last Admin: 11/17/21 08:36 Dose: 30 mg Documented by: EDDIE Lorazepam (Lorazepam 0.5 Mg Tablet) 0.25 mg PO Q8H PRN PRN Reason: Anxiety Last Admin: 11/17/21 08:35 Dose: 0.25 mg Documented by: EDDIE Ondansetron HCl (Ondansetron Hcl 4 Mg/2 Ml Vial) 4 mg IVPUSH Q8H PRN PRN Reason: Nausea and Vomiting Last Admin: 11/16/21 09:02 Dose: 4 mg Documented by: EDDIE Oxycodone HCl (Oxycodone Hcl Immed Release 5 Mg Tablet) 5 mg PO Q4H PRN PRN Reason: Pain, Moderate (Pain Scale 4-6 Pantoprazole Sodium (Pantoprazole Sodium 40 Mg/10 Ml Vial) 40 mg IVPUSH DAILY@0630 [facility] Last Admin: 11/17/21 05:57 Dose: 40 mg Documented by: TARIQ Pharmacy Consult (Consult Rx Perform Med Rec) 1 each MISCELLANE ONCE PRN PRN Reason: Consult order Simethicone (Simethicone 80 Mg Tab.Chew) 80 mg PO QIDWMHS PRN PRN Reason: gas pain Last Admin: 11/16/21 23:11 Dose: 80 mg Documented by: COLLILY Sodium Chloride (0.9 % Sodium Chloride Flush 3 Ml Syringe) 3 ml IVFLUSH QSHIFT [facility] Last Admin: 11/17/21 08:38 Dose: 3 ml Documented by: EDDIE Labs CBC & Chem 7: 11/17/21 05:27 11/12/21 05:21 Labs: Laboratory Results - last 24 hr 11/17/21 05:27 MCV 87.8 MCH 29.9 MCHC 34.1 RDW 13.8 Plt Count 271 MPV 9.6 Immature Gran % (Auto) Cancelled Neut % (Auto) Cancelled Lymph % (Auto) Cancelled [place] % (Auto) Cancelled Eos % (Auto) Cancelled Baso % (Auto) Cancelled Lymph # (Auto) Cancelled [place] # (Auto) Cancelled Eos # (Auto) Cancelled Baso # (Auto) Cancelled Abs Immat Gran (auto) Cancelled Absolute Neuts (auto) Cancelled Absolute Nucleated RBC 0.000 Nucleated RBC % (auto) 0.0 Neutrophils % (Manual) 70 Band Neutrophils % 4 Lymphocytes % (Manual) 13 L Monocytes % (Manual) 8 Eosinophils % (Manual) 2 Metamyelocytes % 1 Myelocytes % 1 Promyelocytes % 1 Abs Neuts (Manual) 9.8 H Lymphocytes # (Manual) 1.7 Monocytes # (Manual) 1.1 Eosinophils # (Manual) 0.3 Metamyelocytes # 0.1 Myelocytes # 0.1 Promyelocytes # 0.1 Platelet Estimate NORMAL Plt Morphology Comment NORMAL RBC Morphology NORMAL Polychromasia 1+ (0-2) Macrocytosis 1+ (5-14) [place] Cells 2+ (3-5) Procedures Date of Service Date of Service: 11/17/21 Progress Note: A&P Assessment and plan (1) Perforated appendicitis: Status: Acute Plan 36 year old female admitted with perforated appendicitis. Thickened appendix with a few foci of gas and significant RLQ inflammatory changes present on CT scan. Decision was made to trial nonoperative treatment. Patient continues to feel improved overall- less pain and tenderness upon examination. Tolerating solid diet. WBC continues to downtrend. Plan: Continue IV antibiotics for today. Likely discharge to home on course of PO abx tomorrow. Repeat CT scan 1 week. Encouraged OOB and ambulation. Time Spent With Patient Time: Total time spent is greater than 50% in coordination of care (as documented) at patient's floor/unit and/or counseling patient: Quality Stroke Does the patient have a stroke diagnosis?: No VTE Prior VTE?: No VTE Risk Level:: Surgical - moderate VTE Device Contraindication: N/A - Device Ordered VTE Drug Contraindication: Treatment Not Indicated
[2021-11-17 11:45] VITALS: BP 121/79; PULSE 63; RESP 18; TEMP 36.9; O2SAT 95
--- NOTE | 2021-11-17 11:45 | MHC.CM.PN ---
EMR REVIEWED, PER SURGICAL PLAN FOR ONE MORE DAY OF IV ABX AND POSSIBLE D/C TOMORROW ON ORAL ABX AND REPEAT CT SCAN X 1 WK, CM WILL CONT TO FOLLOW D/C NEEDS.
[2021-11-17 15:06] VITALS: BP 140/64; PULSE 62; RESP 17; TEMP 37; O2SAT 100
[2021-11-17] MEDS: Simethicone 80 MG TAB.CHEW PO (17:50)
[2021-11-17 19:08] VITALS: BP 112/58; PULSE 57; RESP 17; TEMP 36.6; O2SAT 96
[2021-11-18] VITALS: BP 124/58; PULSE 65; RESP 16; TEMP 37.1; O2SAT 94
[2021-11-18] MEDS: Piperacillin Sodium/Tazobactam 3.375 GM in 0.9 % Sodium Chloride 50 ML IV ×2 (00:40→06:17)
[2021-11-18] MEDS: 0.9 % Sodium Chloride Flush 3 ML SYRINGE IVFLUSH ×2 (00:40→08:23)
[2021-11-18 03:39] VITALS: BP 134/59; PULSE 65; RESP 14; TEMP 36.8; O2SAT 90
[2021-11-18] MEDS: Pantoprazole Sodium 40 MG/10 ML VIAL IVPUSH (06:18)
[2021-11-18 07:35] VITALS: BP 127/65; PULSE 64; RESP 18; TEMP 36.8; O2SAT 99
--- NOTE | 2021-11-18 08:52 | P.PNGS_ITS ---
Subjective Subjective Date of Service: 11/18/21 Interval history: Feels much better this morning, denies significant pain. C/o yeast infection, feeling gassy . Wants to go home. Physical Exam Vital Signs: Vital Signs: Last Vital Signs Temp 98.3 F 11/18/21 07:35 Pulse 64 11/18/21 07:35 Resp 18 11/18/21 07:35 BP 127/65 11/18/21 07:35 Pulse Ox 99 11/18/21 07:35 BMI result Body Mass Index 21.4 Const: General: comfortable and no acute distress Orientation/consciousness: patient oriented x3 Resp: Effort & Inspection: normal respiratory effort GI: Inspection: No distended Palpation (GI): Soft to palpation, Tenderness to palpation present (GI) (mild, RLQ/pelvic), no guarding and not rigid Percussion: Yes normal to percussion Skin: General skin exam: no rashes or lesions noted Neuro: General: patient oriented x3 Objective Data Active Medications Acetaminophen (Acetaminophen 325 Mg Tablet) 650 mg PO Q6H PRN PRN Reason: fever, pain Piperacillin Sod/Tazobactam (Sod 3.375 gm/ Sodium Chloride) 50 mls @ 100 mls/hr IV Q6H NEHEMIAH Last Infusion: 11/18/21 07:00 Dose: 0 mls/hr Documented by: DEANNA Ketorolac Tromethamine (Ketorolac Tromethamine 30 Mg/Ml Vial) 30 mg IVPUSH Q6H PRN PRN Reason: Pain, Moderate (Pain Scale 4-6 Last Admin: 11/17/21 22:37 Dose: 30 mg Documented by: SHIRA Lorazepam (Lorazepam 0.5 Mg Tablet) 0.25 mg PO Q8H PRN PRN Reason: Anxiety Last Admin: 11/17/21 22:31 Dose: 0.25 mg Documented by: SHIRA Ondansetron HCl (Ondansetron Hcl 4 Mg/2 Ml Vial) 4 mg IVPUSH Q8H PRN PRN Reason: Nausea and Vomiting Last Admin: 11/16/21 09:02 Dose: 4 mg Documented by: EDDIE Oxycodone HCl (Oxycodone Hcl Immed Release 5 Mg Tablet) 5 mg PO Q4H PRN PRN Reason: Pain, Moderate (Pain Scale 4-6 Pantoprazole Sodium (Pantoprazole Sodium 40 Mg/10 Ml Vial) 40 mg IVPUSH DAILY@0630 [facility] Last Admin: 11/18/21 06:18 Dose: 40 mg Documented by: DEANNA Pharmacy Consult (Consult Rx Perform Med Rec) 1 each MISCELLANE ONCE PRN PRN Reason: Consult order Simethicone (Simethicone 80 Mg Tab.Chew) 80 mg PO QIDWMHS PRN PRN Reason: gas pain Last Admin: 11/17/21 17:50 Dose: 80 mg Documented by: SHIRA Sodium Chloride (0.9 % Sodium Chloride Flush 3 Ml Syringe) 3 ml IVFLUSH QSHIFT [facility] Last Admin: 11/18/21 08:23 Dose: 3 ml Documented by: JEANCARLOS Labs CBC & Chem 7: 11/17/21 05:27 11/12/21 05:21 Procedures Date of Service Date of Service: 11/18/21 Progress Note: A&P Assessment and plan (1) Perforated appendicitis: Status: Acute Plan 36 year old female admitted with perforated appendicitis. Thickened appendix with a few foci of gas and significant RLQ inflammatory changes present on CT scan. Pain significantly improved and very minimal today. Improved with nonoperative measures, on IV zosyn. WBC has continually downtrended and almost normalized. Very mild tenderness on exam this am. Plan: Stable for discharge to home on course of PO abx today, fluconazole for yeast infection. Repeat CT scan 1 week, f/u in office with Dr. Odom. Time Spent With Patient Time: Total time spent is greater than 50% in coordination of care (as documented) at patient's floor/unit and/or counseling patient: Quality Stroke Does the patient have a stroke diagnosis?: No VTE Prior VTE?: No VTE Risk Level:: Surgical - moderate VTE Device Contraindication: N/A - Device Ordered VTE Drug Contraindication: Treatment Not Indicated
--- NOTE | 2021-11-18 09:04 | MHC.CM.PN ---
NURSE CASE MANGEMENT ELECTRONIC MEDICAL RECORD REVIEWED ALONG WITH CASE DISCUSSED WITH STAFF NURS3 , MET WITH PATIENT SHE IS AWARE OF DISCHAGRE TODAY DISCHarge plan home no sservices transportation family pcp patient to call for post hospitla discharge follow up
--- NOTE | 2021-11-18 14:01 | PM.DS ---
DS: Providers Provider Date of Service: 11/18/21 Date of admission: 11/11/21 12:59 Primary care physician: Ashley Physician Attending physician on admission: Jo Haider Attending physician on discharge: Jere Odom DS: Diagnosis Discharge Diagnosis (1) Perforated appendicitis: Status: Acute DS: Summary Hospital Course Hospital Course: BRIEF HPI: Natali Hernandez is a healthy 36 year old female who presented to the ED with c/o abdominal pain. She reports she was in her normal state of health until the pain started Monday and was initially periumbilical but migrated to the RLQ where it persisted. The pain is associated with subjective fevers, nausea/vomiting and diarrhea. Her and son had similar symptoms which is why she thought she had a stomach bug. However the pain worsened last night and became so severe she was unable to sleep. This prompted her to seek care in the ED. A CBC was obtained in the ED which showed a leukocytosis of 31. A CT scan was therefore obtained which showed inflammatory changes present in the right lower quadrant with a thickened appendix extending down towards the rectum where there is an inflammatory process. There are some small locules of extraluminal air seen in the right lower quadrant. No current drainable abscess noted as well. Surgery consult was therefore requested. HOSPITAL COURSE: The patient was admitted to the surgical service under Dr. Haider for further treatment of acute appendicitis, perforated. She was stable without peritoneal signs and it was suggested to continue with nonoperative treatment with IV antibiotics and close monitoring with serial abd exams given the increased likelihood she would require an ileocolectomy given the changes seen. It was also discussed the possible need to proceed with surgery if she worsens or does not improve. She was started on IV zosyn, kept NPO, IVF, PRN analgesics and antiemetics. The patient had an uncomplicated hospital stay. She improved with nonoperative measures. Her abdominal pain and tenderness improved daily. She remained afebrile with stable vitals. Her WBC downtrended and almost normalized during her stay. She was started on clear liquids. A repeat CT scan revealed inflammation but no abscess or extraperitoneal air collections. She was passing flatus and having liquid stools. She felt hungry and she was advanced to a solid diet. Her activity was increased. She remained inpatient for IV abx therapy for 7 days. On the day of discharge, she only had mild RLQ/suprapubic pain, was tolerating a diet solid and ambulating without difficulty. Her abdomen was mildly tender to deep palpation without peritoneal signs. She was discharged to home in stable condition on 11/18/21. She did c/o vaginal itching and discharge consistent with yeast infection and was also started on fluconazole x 1 dose. She was to take a second dose in 72 hrs if there was no improvement. She was also sent on a PO 7 day course of Augmentin. She is to have a f/u CT scan in 1 week and f/u appointment with Dr. Odom in 1 week. Status at Discharge Functional status at discharge: independent ambulation Overall status at discharge: patient is progressing back to baseline Time Spent with Patient Time attestation: Total time spent providing and/or coordinating discharge services: Discharge coordination time: Greater than 30 minutes Quality: Safe Use of Opioids Does Pt have an Active Cancer Diagnosis on the Problem List?: No Quality: Stroke Does the patient have a stroke diagnosis?: No Physical Exam Vital Signs: Vital Signs: Last Vital Signs Temp 98.3 F 11/18/21 07:35 Pulse 64 11/18/21 07:35 Resp 18 11/18/21 07:35 BP 127/65 11/18/21 07:35 Pulse Ox 99 11/18/21 07:35 BMI result Body Mass Index 21.4 Const: General: comfortable, no acute distress and alert Orientation/consciousness: patient oriented x3 Resp: Effort & Inspection: normal respiratory effort GI: Inspection: No distended Palpation (GI): Soft to palpation, not firm and Tenderness to palpation present (GI) in the RLQ (very mild to deep) and suprapubicly (very mild to deep) Skin: General skin exam: no rashes or lesions noted Neuro: General: patient oriented x3 Extrem: General: Yes no clubbing, cyanosis or edema Discharge Plan Discharge Patient Disposition: Home, Self-Care Discharge Diagnosis: perforated appendicitis Referrals: Jere Odom MD [Physician] - 1 Week Physician,Ashley Boothe [Primary Care Provider] - 1 Week Discharge Medications: New amoxicillin-pot clavulanate [Augmentin] 500-125 mg tablet 1 tab PO BID Qty: 14 0RF lorazepam 0.5 mg Tablet 0.25 mg PO Q8H PRN (Reason: Anxiety) Qty: 10 0RF fluconazole [Diflucan] 150 mg tablet 150 mg PO Q3D Qty: 2 0RF Rx Instructions: may repeat second dose 72 hrs after first dose if symptoms persist Continued triamcinolone acetonide 0.1 % cream 1 appl TOPICAL DAILY PRN (Reason: Itching) 0RF Discharge Orders: Discharge Order (Routine); Ordered 11/18/21 Ordered By: Jere Odom Diet: advance to usual diet Activity on Discharge: As tolerated Stand Alone Forms: Patient Portal Discharge page Other Ambulatory Orders: CT abdomen pelvis w con (Routine) Timeframe: 1 Week Facility: [facility] - Location: CT Scan Ordered By: Hiwot Haider Care Plan Goals: Return to baseline health and gradual return to activity as tolerated. Health Concerns: Perforated appendicitis Plan of Treatment: Supportive measures IV and PO abx F/u in office Assessment: Improved Discharge Date/Time: 11/18/21 09:13
== END 2021-11-18 09:13 | disposition home or self-care (01) | DRG 248 ==
LOC: HO.ED 15:49 → HO.EDOVER 16:08 → HO.S3 16:44
PROVIDERS: Physician Assistant Surgical; Surgery; Admitting Provider Internal Medicine; Emergency Provider Student in an Organized Health Care Education/Training Program; PCP Internal Medicine; Visit Provider Surgery
DX: K35.32 Acute appendicitis with perforation, localized peritonitis, and gangrene, without abscess (principal); K56.7 Ileus, unspecified; B37.3 Candidiasis of vulva and vagina; Z20.822 Contact with and (suspected) exposure to COVID-19; Z79.3 Long term (current) use of hormonal contraceptives; Z79.899 Other long term (current) drug therapy
CPT/HCPCS: 36415; 74177; 80048; 80076; 81001; 81003; 81025; 83605; 83690; 85007; 85025; 85027; 87086; 87493; 87635; 96361; 96365; 96375; 96376; 99285; 99291; J0131; J1885; J2270; J2405; J2543; Q9967

== ENCOUNTER 2021-11-23 08:36 | Outpatient (REF) | payer OTHER, SELFPAY ==
--- NOTE | ~2021-11-23 | CT_ITS ---
EXAMINATION: CT ABDOMEN AND PELVIS WITH CONTRAST CLINICAL INFORMATION: Follow-up perforated appendicitis. COMPARISON: CT abdomen and pelvis 11/15/2021, 11/11/2021. TECHNIQUE: Multidetector volumetric images were obtained from the superior aspect of the liver through the pubic symphysis following administration 85 mL of Omnipaque 350 intravenous contrast. Sagittal and coronal reformatted images were obtained on the technologist's workstation. Oral contrast: [address] examination was performed using dose optimization techniques as appropriate, variously including the following: *Automated exposure control *Adjustment of mA and/or kV according to patient size (this includes techniques or standardized protocols for targeted exams where dose is matched to indication/reason for exam; i.e. extremities or head) *Use of iterative reconstruction technique DLP: 588 mGy-cm FINDINGS: LUNG BASES: The visualized lung bases are unremarkable. LIVER, GALLBLADDER, AND BILIARY TREE: The liver is normal in size, shape, and attenuation. No focal hepatic lesion or biliary ductal dilatation is present. The gallbladder is unremarkable with no evidence of radiopaque gallstones, gallbladder wall thickening, or obvious pericholecystic inflammatory changes. PANCREAS: Unremarkable. SPLEEN: Unremarkable. ADRENAL GLANDS: Unremarkable. KIDNEYS AND URETERS: The kidneys are normal in size, shape, and attenuation. No hydronephrosis, hydroureter, or calculi seen. No perinephric stranding. BLADDER: Unremarkable. GASTROINTESTINAL TRACT: The visualized stomach is normal. Contrast opacified proximal and mid small bowel loops are normal. There are multiple dilated distal small bowel loops in the upper and mid pelvis. There is phlegmon in the right pelvis with several matted small bowel loops which are prominent and fluid-filled. Appendix is not visualized. There is no gas visualized to suspect any drainable abscess. No free fluid either. No free air seen. ABDOMINAL WALL: No significant hernia is appreciated. LYMPH NODES: Normal. VASCULAR: Unremarkable. PELVIC VISCERA: There is no free fluid, free air or abnormal pelvic or inguinal lymphadenopathy. There are multiple small prominent bowel loops in the upper and mid pelvis which appear adherent to each other likely from chronic inflammatory process. No drainable abscess or free air seen. There is no free fluid either. OSSEOUS STRUCTURES: No aggressive lytic or sclerotic process seen. CT/CT abdomen pelvis w con IMPRESSION: Contrast opacified small bowel loops are unremarkable. The contrast hasn't reached the distal ileum. There are non-contrast opacified prominent ileal loops in the pelvis which appear to be adherent to each other likely from chronic inflammatory process. There is no drainable abscess, free air or free fluid. There is likely underlying phlegmon as well. Appendix is not visualized. There is mild stool in the right colon. Fleischner guidelines were followed.
[2021-11-23] MEDS: Barium Sulfate Oral (Berry) 450 ML ORAL.SUSP 900 ML PO (10:57)
[2021-11-23] MEDS: iohexoL 350 MG/ML 100 ML INFUS..BTL 85 ML IV (11:09)
== END 2021-11-23 08:37 | disposition home or self-care (01) ==
LOC: HO.CT 08:36
PROVIDERS: Visit Provider Physician Assistant Surgical
DX: K35.32 Acute appendicitis with perforation, localized peritonitis, and gangrene, without abscess (principal)
CPT/HCPCS: 74177; Q9967

== ENCOUNTER → 2021-11-26 09:05 | Outpatient (BNVA) | payer OTHER, SELFPAY | PROVIDERS: Visit Provider Surgery | DX: Z13.89 Encounter for screening for other disorder (principal) ==

== ENCOUNTER 2022-02-07 15:11 | Outpatient (REF) | payer OTHER, SELFPAY ==
--- NOTE | ~2022-02-07 | CT_ITS ---
EXAMINATION: CT ABDOMEN AND PELVIS WITHOUT CONTRAST CLINICAL INFORMATION: Acute appendicitis with perforation and localized peritonitis. COMPARISON: CT abdomen and pelvis 12/10/2021 TECHNIQUE: Multidetector volumetric imaging was performed from the superior aspect of the liver through the pubic symphysis. Sagittal and coronal reformatted images were obtained on the technologist's workstation. This CT examination was performed using dose optimization techniques as appropriate, variously including the following: *Automated exposure control *Adjustment of mA and/or kV according to patient size (this includes techniques or standardized protocols for targeted exams where dose is matched to indication/reason for exam; i.e. extremities or head) *Use of iterative reconstruction technique DLP: 791 mGy-cm FINDINGS: LUNG BASES: The visualized lung bases are unremarkable. LIVER, GALLBLADDER, AND BILIARY TREE: The liver is normal in size, shape, and attenuation. No focal hepatic lesion or biliary ductal dilatation is present. The gallbladder is unremarkable with no evidence of radiopaque gallstones, gallbladder wall thickening, or obvious pericholecystic inflammatory changes. PANCREAS: Unremarkable. SPLEEN: Unremarkable. ADRENAL GLANDS: Unremarkable. KIDNEYS AND URETERS: The kidneys are normal in size, shape, and attenuation. No hydronephrosis, hydroureter, or calculi seen. No perinephric stranding. BLADDER: Unremarkable. GASTROINTESTINAL TRACT: There is scattered stool in the colon without distention. Oral contrast opacified small bowel loops are of normal caliber. Previously visualized prominent small bowel loops in the pelvis have resolved Appendix is not visualized. No inflammatory process seen in the pelvis. The stomach is contrast opacified and appears unremarkable. ABDOMINAL WALL: A small lumbar canal hernia containing fat is noted. LYMPH NODES: Normal. VASCULAR: Unremarkable. PELVIC VISCERA: There is no free fluid. There is 5 cm cyst in the left pelvis likely ovarian or paraovarian better visualized on the present exam as the dilated small bowel loops have resolved. There is a calcification posterior to this cyst likely a phlebolith. The right adnexa appears unremarkable. There is no free fluid. The uterus is anteverted and appears unremarkable OSSEOUS STRUCTURES: There are degenerative disc changes with vacuum disc phenomena at the L5-S1 disc level. No aggressive lytic or sclerotic process is seen. CT/CT abdomen pelvis wo con IMPRESSION: Previously visualized prominent fluid-filled small bowel loops in the pelvis has improved. The 5 cm left adnexal cyst that is better visualized at this time, is likely a paraovarian or ovarian cyst. It is stable. There is no inflammatory process in the abdomen. There is no free fluid. Small umbilical hernia containing fat. Fleischner guidelines were followed.
[2022-02-07] MEDS: Diatrizoate Meglumine, Sodium 30 ML SOLUTION PO (17:34)
== END 2022-02-07 15:12 | disposition home or self-care (01) ==
LOC: HO.CT 15:11
PROVIDERS: PCP Internal Medicine; Visit Provider Surgery
DX: K35.32 Acute appendicitis with perforation, localized peritonitis, and gangrene, without abscess (principal)
CPT/HCPCS: 74176